=== PATIENT | female | born 1950 | race Caucasian/White ===

== ENCOUNTER 2018-06-21 10:26 | Emergency (ER) | payer OTHER, SELFPAY ==
[2018-06-21 10:34] VITALS: BP 155/85; PULSE 95; RESP 18; TEMP 36.6; O2SAT 97; BMI 29.9
--- NOTE | 2018-06-21 10:47 | ED_ITS ---
HPI - Dizziness General Chief Complaint: Dizziness Stated Complaint: diabeticvictor hugo Time Seen by Provider: 06/21/18 10:34 Source: patient Mode of arrival: wheelchair Limitations: no limitations History of Present Illness HPI Narrative: Patient is a 59-year-old female presenting with dizziness and lightheadedness. She was at water aerobics which she typically does 3 days a week she usually feels a little weak afterwards. She says she is prediabetic so typically PE something she feels better. However today she had to leave early because she did not feel good she ate something and still does not feel quite right. She denies chest pain heart palpitations or shortness of breath. She has no weakness the vision change or confusion. She has not passed out but feels like she might. She denies drinking any water. MD complaint: dizziness and lightheadedness Onset (ago): minute(s) Severity: mild Relieving factors: nothing Exacerbating factors: nothing Related Data Home Medications Medication Instructions Recorded Confirmed hydrochlorothiazide 25 mg PO DAILY #30 04/14/16 06/21/18 levothyroxine [Synthroid] 75 mcg PO DAILY #30 04/14/16 06/21/18 losartan 50 mg PO DAILY #0 tab 04/14/16 06/21/18 meloxicam [Mobic] 7.5 mg PO [facility] PRN #0 tab 04/14/16 06/21/18 ranitidine HCl 150 mg PO DAILY PRN #0 tab 04/14/16 06/21/18 clonazepam 0.25 mg PO [facility] PRN 06/21/18 06/21/18 desvenlafaxine succinate [Pristiq] 100 mg PO DAILY 06/21/18 06/21/18 trazodone 100 mg PO BEDTIME 06/21/18 06/21/18 Previous Rx's Medication Instructions Recorded propranolol 10 mg tablet 10 mg PO BIDP PRN #180 05/05/18 Allergies Allergy/AdvReac Type Severity Reaction Status Date / Time codeine [CODEINE] Allergy Unknown Verified 06/21/18 10:34 Review of Systems Review of Systems All systems reviewed & are unremarkable except as noted in HPI and below Constitutional Denies chills, Denies fever(s), Denies lethargy and Denies weakness Eyes Denies blurry vision and Denies diplopia ENT Ears, Nose, Mouth, and Throat: Denies vertigo and Reports dizziness Cardiovascular Denies chest pain, Denies syncope, Denies rapid heart rate, Denies irregular heart rhythm, Reports lightheadedness, Denies palpitations and Denies orthopnea Gastrointestinal Gastrointestinal: Denies abdominal pain, Denies change in bowel habits, Denies diarrhea, Denies nausea and Denies vomiting Musculoskeletal Denies back pain, Denies muscle weakness, Denies numbness and Denies tingling Integumentary/Breasts Denies pruritus, Denies erythema, Denies rash and Denies wounds Neurologic Denies vertigo, Reports dizziness, Denies syncope, Denies focal weakness, Denies numbness, Denies tingling and Denies weakness Endocrine Denies palpitations [facility] Social History Smoking Status: Never smoker Exam Initial Vital Signs Initial Vital Signs: Vital Signs Temperature 97.9 F 06/21/18 10:34 Pulse Rate 95 H 06/21/18 10:34 Respiratory Rate 18 06/21/18 10:34 Blood Pressure 155/85 H 06/21/18 10:34 Pulse Oximetry 97 06/21/18 10:34 GENERAL: Well-appearing, well-nourished and in no acute distress. HEENT: Head atraumatic,EOMI, pupils reactive, face symmetric CARDIOVASCULAR: Regular rate and rhythm without murmurs, rubs or gallops. RESPIRATORY: Breath sounds equal bilaterally, no wheezes rales or rhonchi. ABDOMEN: Soft, nontender. Normoactive bowel sounds all 4 quadrants. No guarding or rebound. EXTREMITIES: Normal range of motion, no clubbing or edema. Neurovascularly intact NEUROLOGICAL: Alert and oriented x4.Normal gait and speech. Cranial nerves II through XII grossly intact. Good [id number], good [id number], strength equal bilaterally, no dysarthria or aphasia, sensation in tact to soft touch bilaterally, no visual changes, no facial droop SKIN: Warm, dry, no laceration, no petechiae, no rashes or lesions. Scores NIH Stroke Scale Level of Conciousness: Alert, keenly responsive Ask month/age: Answers both questions correctly. Open/close eyes, close hand: Performs both tasks correctly Best gaze horizontal: Normal Visual chamberlain: No visual loss Facial palsy: Normal symetrical movement Left arm drift: No drift for full 10 sec Right arm drift: No drift for full 10 sec Left leg drift: No drift for full 10 sec Right leg drift: No drift for full 10 sec Limb ataxia: Absent Sensory on face/arms/legs: Normal, no sensory loss Best language: No aphasia, normal Dysarthria: Normal Extinction or inattention: No abnormality Total NIH Stroke scale score: 0 Course Orders Ordered: ED Orders 06/21/18 10:57 Complete Blood Count AUTO DIFF Stat Comprehensive Metabolic Panel Stat 06/21/18 11:30 Urine Microscopic Stat Discontinued Medications Sodium Chloride (Normal Saline 0.9%) 1,000 mls @ 1,000 mls/hr IV CONT ASHLEE Last Infusion: 06/21/18 12:07 Dose: 0 mls/hr Admin: 06/21/18 11:06 Dose: 1,000 mls/hr Vital Signs - 8 hr 06/21/18 11:30 Pulse Rate 88 Respiratory Rate 18 Blood Pressure [Left Arm] 134/77 Pulse Oximetry 97 MDM - Dizziness Lab Data Attestation: I reviewed the patient's lab results. Result diagrams: 06/21/18 10:57 06/21/18 10:57 Lab Results 06/21/18 06/21/18 06/21/18 Range/Units 10:57 10:57 11:30 WBC 6.0 (4.5-11.0) X10^3/uL RBC 4.58 (4.0-5.2) X10^6/uL Hgb 14.2 (12.0-16.0) g/dL Hct 41.9 (36-46) % MCV 91.5 (80-100) fL MCH 31.0 (26-34) PG MCHC 33.9 (30-36) % RDW 12.9 (11.6-14.8) % Plt Count 171 (150-400) X10^3/uL Neut % (Auto) 58.1 (50-75) % Lymph % (Auto) 30.0 (25-40) % [place] % (Auto) 8.5 (3-14) % Eos % (Auto) 2.7 (2-4) % Baso % (Auto) 0.7 (0-2) % Neut # (Auto) 3500 (0332-3406) /uL Sodium 138 (137-145) mmol/L Potassium 3.3 L (3.4-5.1) mmol/L Chloride 99 (98-107) mmol/L Carbon Dioxide 28 (22-32) mmol/L BUN 17 (7-17) mg/dL Creatinine 0.70 (0.52-1.04) mg/dL Estimated GFR > 60.0 (>60) mL/min BUN/Creatinine Ratio 24.3 H (6-22) Glucose 129 H (80-110) mg/dL Calcium 9.1 (8.4-10.2) mg/dL Total Bilirubin 0.5 (0.2-1.3) mg/dL AST 26 (14-36) IU/L ALT 38 (9-52) IU/L Alkaline Phosphatase 80 (38-126) U/L Total Protein 6.8 (6.3-8.2) g/dL Albumin 4.1 (3.5-5.0) g/dL Globulin 2.7 (1.7-4.1) g/dL Albumin/Globulin Ratio 1.5 (1.0-2.8) Urine RBC 1-5/hpf (0-5/HPF) Urine WBC 1-5/hpf (0-5/HPF) Ur Squamous Epith Cells 5-10 /hpf H Amorphous Sediment 1+ Urine Bacteria Many (>30) H (None) Ur Culture Indicated? Cult not indicated Micro UA Comment Not Reportable Point of Care Testing Glucose POC 148 Urine Dip Bedside Urine Glucose Negative Bedside Urine Bilirubin - Negative Bedside Urine Ketone - Negative Urine Specific [place] 1.015 Bedside Urine Occult Blood + Bedside Urine pH 6.0 Bedside Urine Protein - Negative Bedside Urine Urobilinogen - Negative Bedside Urine Nitrite - Negative Bedside Urine Leukocytes ++ 125 Esterase ECG Data Attestation: I personally reviewed and interpreted this ECG as follows: Prior ECG tracings: not available for review Interpretation: Normal sinus rhythm rate [address] changes or T-wave inversions artifact noted in V5 MDM Narrative Medical decision making narrative: Patient overall is feeling better after IV fluids. Likely dehydration. Ambulatory in the ED no assistance needed. No focal deficits no further imaging required at this time. Discharge Plan Departure Patient Disposition: Home Clinical Impression: Acute dehydration Discharge Date/Time: 06/21/18 12:18 Interventions: ED Discharge Assessment Last Done: 06/21/18 12:16 Instructions: DI for Dehydration -- Adult Activity Restrictions/Additional Instructions: *You have been diagnosed with dehydration *What to do: Increase fluid intake especially before after an during exercise *Continue to take medications as directed *Follow up with your primary care provider in 2-3 days *Return to ER if you should have increasing dizziness and weakness or any new, worsening or concerning symptoms Prescriptions: No Action propranolol 10 mg tablet 10 mg PO BIDP PRN (Reason: anxiety) Qty: 180 RF: 1 losartan 50 MG tablet 50 mg PO DAILY Qty: 0 RF: 0 levothyroxine [Synthroid] 75 MCG tablet 75 mcg PO DAILY Qty: 30 RF: 5 hydrochlorothiazide 25 MG tablet 25 mg PO DAILY Qty: 30 RF: 2 meloxicam [Mobic] 7.5 MG tablet 7.5 mg PO [facility] PRN (Reason: pain) Qty: 0 RF: 0 ranitidine HCl 150 MG tablet 150 mg PO DAILY PRN (Reason: Heartburn) Qty: 0 RF: 0 clonazepam 0.5 mg tablet 0.25 mg PO HSP PRN (Reason: anxiety) RF: 0 trazodone 100 mg tablet 100 mg PO BEDTIME RF: 0 desvenlafaxine succinate [Pristiq] 100 mg tablet extended release 24 hr 100 mg PO DAILY RF: 0 Referrals: Anel Navarrete PA-C [Primary Care Provider] -
[2018-06-21] MEDS: SODIUM CHLORIDE 0.9% 1,000 ML 1000 ML IV (11:06)
[2018-06-21 11:08] LABS: Add Manual Diff / Slide Review NO; Basophils Percent Auto 0.7 % (0-2); Eosinophils Percent Auto 2.7 % (2-4); Hematocrit 41.9 % (36-46); Hemoglobin 14.2 g/dL (12.0-16.0); Mean Corpuscular HGB Conc 33.9 % (30-36); Mean Corpuscular Volume 91.5 fL (80-100); Monocytes Percent Auto 8.5 % (3-14); Neutrophils Absolute Auto 3500 /uL (1500-7000); Neutrophils Percent Auto 58.1 % (50-75); Platelet Count 171 X10^3/uL (150-400); Red Blood Cell Count 4.58 X10^6/uL (4.0-5.2); Red Cell Distribution Width 12.9 % (11.6-14.8)
[2018-06-21 11:09] VITALS: BP 138/78; BP 140/78; PULSE 84; PULSE 92; PULSE 95
[2018-06-21 11:18] LABS: Alanine Aminotransferase 38 IU/L (9-52); Albumin 4.1 g/dL (3.5-5.0); Albumin Globulin Ratio 1.5 (1.0-2.8); Alkaline Phosphatase 80 U/L (38-126); Aspartate Aminotransferase 26 IU/L (14-36); BUN Creatinine Ratio 24.3 (6-22); Bilirubin Total 0.5 mg/dL (0.2-1.3); Blood Urea Nitrogen 17 mg/dL (7-17); Calcium 9.1 mg/dL (8.4-10.2); Carbon Dioxide 28 mmol/L (22-32); Chloride 99 mmol/L (98-107); Estimated Glomerular Filt Rate > 60.0 mL/min (>60); Globulin 2.7 g/dL (1.7-4.1); Glucose 129 mg/dL (80-110); HEMOLYSIS < 15 (0-50); Potassium 3.3 mmol/L (3.4-5.1); Sodium 138 mmol/L (137-145); Total Protein 6.8 g/dL (6.3-8.2)
[2018-06-21 11:30] VITALS: BP 134/77; PULSE 88; RESP 18; O2SAT 97
[2018-06-21 11:42] LABS: Amorphous Sediment Urine 1+; Bacteria Urine Many (>30); Culture Indicated Urine Cult Not Indicated; RBC Urine 1-5/HPF (0-5/HPF); Squamous Epithelial Cell Urine 5-10 /HPF; WBC Urine 1-5/HPF (0-5/HPF)
== END 2018-06-21 12:18 | disposition home or self-care (01) ==
PROVIDERS: Emergency Provider Emergency Medicine; PCP Physician Assistant
DX: E86.0 Dehydration (principal)
CPT/HCPCS: 80053; 81003; 81015; 82962; 85025; 93005; 96360; 99283; 99284

== ENCOUNTER 2018-07-07 11:20 | Emergency (ER) | payer OTHER, SELFPAY ==
[2018-07-07 11:20] VITALS: BP 167/101; PULSE 82; RESP 14; TEMP 36.5; O2SAT 99
--- NOTE | 2018-07-07 11:34 | DI.RAD.S_ITS ---
PROCEDURE: XR CHEST 1V INDICATIONS: chest pain TECHNIQUE: One view of the chest was acquired. COMPARISON: None. FINDINGS: Surgical changes and devices: None. Lungs and pleura: No pleural effusions or pneumothorax. Lungs are clear. Mediastinum: Mediastinal contours appear normal. Heart size is normal. Bones and chest wall: No suspicious bony lesions. Overlying soft tissues appear unremarkable. IMPRESSION: Normal for age, source of current chest pain symptoms is not seen. Dictated by: Jean Pierre Auguste M.D. on 07/07/2018 at 12:07 Approved by: Jean Pierre Auguste M.D. on 07/07/2018 at 12:08
[2018-07-07 11:43] LABS: Add Manual Diff / Slide Review NO; Basophils Absolute Auto 0 /uL (0-100); Basophils Percent Auto 0.7 % (0-2); Eosinophils Absolute Auto 200 /uL (0-450); Hematocrit 42.4 % (36-46); Hemoglobin 14.6 g/dL (12.0-16.0); Lymphocytes Absolute Auto 1900 /uL (1100-4500); Lymphocytes Percent Auto 30.3 % (25-40); Mean Corpuscular HGB Conc 34.4 % (30-36); Mean Corpuscular Hemoglobin 31.4 PG (26-34); Mean Corpuscular Volume 91.2 fL (80-100); Monocytes Absolute Auto 500 /uL (0-900); Monocytes Percent Auto 7.3 % (3-14); Neutrophils Absolute Auto 3700 /uL (1500-7000); Neutrophils Percent Auto 58.7 % (50-75); Platelet Count 185 X10^3/uL (150-400); Red Blood Cell Count 4.65 X10^6/uL (4.0-5.2); Red Cell Distribution Width 13.1 % (11.6-14.8); White Blood Cell Count 6.4 X10^3/uL (4.5-11.0)
[2018-07-07 11:47] LABS: INR 0.9 (0.9-1.3); Prothrombin Time 10.7 SECONDS (10.1-12.7)
[2018-07-07 11:50] LABS: PTT Partial Thromboplastin Tim 25 SECONDS (26.4-36.2)
[2018-07-07 11:52] LABS: Alanine Aminotransferase 40 IU/L (9-52); Albumin 4.4 g/dL (3.5-5.0); Albumin Globulin Ratio 1.4 (1.0-2.8); Alkaline Phosphatase 83 U/L (38-126); Aspartate Aminotransferase 29 IU/L (14-36); BUN Creatinine Ratio 17.1 (6-22); Bilirubin Total 0.5 mg/dL (0.2-1.3); Blood Urea Nitrogen 12 mg/dL (7-17); Calcium 9.1 mg/dL (8.4-10.2); Carbon Dioxide 31 mmol/L (22-32); Chloride 92 mmol/L (98-107); Creatine Kinase 64 U/L (30-135); Estimated Glomerular Filt Rate > 60.0 mL/min (>60); Globulin 3.1 g/dL (1.7-4.1); Glucose 116 mg/dL (80-110); HEMOLYSIS < 15 (0-50); Lipase 110 U/L (23-300); Potassium 3.6 mmol/L (3.4-5.1); Sodium 132 mmol/L (137-145); Total Protein 7.5 g/dL (6.3-8.2)
[2018-07-07] MEDS: ASPIRIN 81 MG TAB 324 MG PO (11:54)
[2018-07-07 12:00] VITALS: BP 144/84; BP 155/95; BP 156/93; PULSE 69; PULSE 76; PULSE 83; RESP 18; O2SAT 99
[2018-07-07 12:04] LABS: Troponin I < 0.012 ng/mL (0.01-0.034)
[2018-07-07 12:50] VITALS: BP 130/77; PULSE 71; RESP 12; O2SAT 98
[2018-07-07 14:05] VITALS: BP 140/90; PULSE 70; RESP 18; O2SAT 97
--- NOTE | 2018-07-07 18:53 | ED.DIZZY ---
HPI - Dizziness General Chief Complaint: Syncope Stated Complaint: Dizzy and faint Time Seen by Provider: 07/07/18 12:21 Source: patient Mode of arrival: ambulatory Limitations: no limitations History of Present Illness HPI Narrative: Patient presents the emergency department complaining of dizziness after her water aerobics workouts for the last 4 months. Patient states that she was seen here 2 weeks ago for the same thing, and was told she needed to drink more water, both by the emergency physician and by the PA at her doctor's office, whom she saw subsequently. She states she has been trying to drink more water, and has been drinking about 64 oz per day, but that this has not made the symptoms go away. She states that actually, today, she felt so bad that she had to stop 30 min before the workup was over. Patient states she walks every Thursday, a little over a mild total, and does not generally have any problem with this. She states that she just feels generally a little bit tired. She states she has been somewhat inconsistent about her water aerobics workouts, and other than the walking, does not do any exercise in between to speak of. She states that she tries to eat fruits and vegetables, but also visits [employer] and [employer] regularly, as well. Patient denies any chest pain or shortness of breath. She states she had a stress test 2 years ago that was negative. No history of cardiac problems for the patient. She denies any history of diabetes, and no hypertension. Patient denies any palpitations with the lightheadedness. Patient states she felt as though she might lose consciousness today but never did. She states her dizziness is more of a lightheaded feeling, as opposed to a spinning, vertigo feeling. Patient denies any problems with lightheadedness or other symptoms when she is not exercising. Patient states that generally, the symptoms last for 30-60 minutes after exercise, and then subside. Patient states that she is now feeling normal, but that the last episode of symptoms was earlier today. Related Data Home Medications Medication Instructions Recorded Confirmed hydrochlorothiazide 25 mg PO DAILY #30 04/14/16 07/07/18 levothyroxine [Synthroid] 75 mcg PO DAILY #30 04/14/16 07/07/18 losartan 50 mg PO DAILY #0 tab 04/14/16 07/07/18 meloxicam [Mobic] 7.5 mg PO [facility] PRN #0 tab 04/14/16 06/21/18 ranitidine HCl 150 mg PO DAILY PRN #0 tab 04/14/16 06/21/18 clonazepam 0.25 mg PO [facility] PRN 06/21/18 07/07/18 desvenlafaxine succinate [Pristiq] 100 mg PO DAILY 06/21/18 07/07/18 trazodone 100 mg PO BEDTIME 06/21/18 07/07/18 Previous Rx's Medication Instructions Recorded propranolol 10 mg tablet 10 mg PO BIDP PRN #180 05/05/18 Allergies Allergy/AdvReac Type Severity Reaction Status Date / Time codeine [CODEINE] Allergy Unknown Verified 07/07/18 11:34 Review of Systems Constitutional Denies chills, Denies fever(s), Denies lethargy and Denies weakness Eyes Denies change in vision, Denies eye discharge, Denies irritation and Denies loss of vision ENT Ears, Nose, Mouth, and Throat: Denies change in voice, Denies neck pain and Denies sore throat Cardiovascular Denies chest pain, Denies irregular heart rhythm, Reports lightheadedness, Denies palpitations, Denies dyspnea, Denies dyspnea on exertion and Denies orthopnea Respiratory Denies cough, Denies dyspnea, Denies dyspnea on exertion and Denies wheezing Gastrointestinal Gastrointestinal: Denies abdominal pain, Denies change in bowel habits, Denies diarrhea, Denies nausea and Denies vomiting Genitourinary Denies hematuria, Denies flank pain, Denies urinary incontinence and Denies urinary urgency Musculoskeletal Denies neck pain Integumentary/Breasts Denies pruritus, Denies erythema, Denies rash and Denies wounds Neurologic Denies confusion, Denies loss of vision and Denies weakness Psychiatric Denies anxiety, Denies confusion, Denies depression, Denies homicidal ideation and Denies suicidal ideation Endocrine Denies palpitations Hematologic/Lymphatic Denies easy bruising Allergic/Immunologic Denies wheezing [facility] Medical History Postural dizziness with near syncope (Acute) Generalized anxiety disorder (Acute) Major depressive disorder, recurrent (Acute) Major depressive disorder, recurrent, in remission (Acute) Surgical History No pertinent past surgical history (Acute) Social History Smoking Status: Never smoker Exam Initial Vital Signs Initial Vital Signs: Vital Signs Temperature 97.7 F 07/07/18 11:20 Pulse Rate 82 07/07/18 11:20 Respiratory Rate 14 07/07/18 11:20 Blood Pressure 167/101 H 07/07/18 11:20 Pulse Oximetry 99 07/07/18 11:20 Const General: cooperative and well developed Nutritional Appearance: well nourished Orientation: alert, awake, oriented x3 and not confused HENMT Head: normocephalic and atraumatic Ears: external ears normal Nose: external nose normal and No nasal discharge Face and sinus: face symmetric and No dry mucous membranes Mouth: oral mucosae normal and moist mucous membranes Teeth and gingiva: dentition normal Eyes General: appearance normal, both eyes and all related structures Eyelids: eyelids normal Conjunctivae: conjunctivae normal Sclera: sclerae normal Pupils: PERRL EOM: EOM intact bilaterally Neck Neck: normal visual inspection, trachea midline, No lymphadenopathy, No midline deformity and No JVD Lymphatic: No lymphedema Chest Chest: normal inspection of the chest Resp Effort & Inspection: normal respiratory effort, able to speak in complete sentences, no respiratory distress and no use of accessory muscles Auscultation: clear to auscultation bilaterally, no rales, no rhonchi and no wheezes Cardio Rate: regular rate Rhythm: regular rhythm Heart Sounds: no click, no gallops, no murmurs and no rubs Pulses: normal peripheral pulses GI Inspection: non-distended Palpation: soft, no hepatosplenomegaly, No guarding, No pulsatile mass and No tender Back/Spine/Pelvis Back: No CVA tenderness Cervical Spine: cervical ROM normal and No pain with cervical ROM Thoracic/Lumbar Spine: thoracic and lumbar spine normal to inspection Skin General: no rashes or lesions noted, No jaundice and No petechiae Neuro General: alert, awake, oriented x3, gait normal and no focal motor deficits Speech: speech normal Extrem General: full ROM, no clubbing, cyanosis or edema, no pedal edema and no calf tenderness Psych Appearance: well kempt Mental Status: mental status grossly normal Attitude: cooperative Thought Content: normal and suicidality Judgment: judgment good Course Course Narrative: Patient was worked up with labs and EKG, which were unremarkable for acute abnormalities. I discussed with the patient that at this point, she needs to stop doing water aerobics until she has been able to get to the bottom of why she is getting dizzy. It is very important that she has a follow-up with her primary doctor in the near future to discuss getting a stress test, and potentially, Holter monitoring. The patient has expressed understanding. She is feeling fine now, as she does when she is not exercising, and I feel she is stable for discharge home. We have discussed the need for follow-up, as well as the usual indications for return, especially should she develop the lightheadedness or chest pain and/or shortness of breath at rest. Orders Ordered: ED Orders 07/07/18 11:34 XR chest 1V Stat EKG-12 Lead Stat 07/07/18 11:35 Complete Blood Count AUTO DIFF Stat Comprehensive Metabolic Panel Stat Lipase Stat Partial Thromboplastin Time Stat Prothrombin Time INR Stat Troponin & CK Cardiac Panel Stat Discontinued Medications Aspirin (Aspirin Chew) 324 mg PO NOW ONE Stop: 07/07/18 11:35 Last Admin: 07/07/18 11:54 Dose: 324 mg Vital Signs - 8 hr 07/07/18 11:20 07/07/18 12:00 07/07/18 12:50 Temperature 97.7 F Pulse Rate 82 76 71 Pulse Rate [Orthostatic Lying] 69 Pulse Rate [Orthostatic Sitting] 76 Pulse Rate [Orthostatic Standing] 83 Respiratory Rate 14 18 12 Blood Pressure 167/101 H Blood Pressure [Orthostatic Lying] 144/84 H Blood Pressure [Orthostatic Sitting] 156/93 H Blood Pressure [Orthostatic Standing] 155/95 H Blood Pressure [Right Arm] 144/84 H 130/77 Pulse Oximetry 99 99 98 07/07/18 14:05 Temperature Pulse Rate 70 Pulse Rate [Orthostatic Lying] Pulse Rate [Orthostatic Sitting] Pulse Rate [Orthostatic Standing] Respiratory Rate 18 Blood Pressure 140/90 Blood Pressure [Orthostatic Lying] Blood Pressure [Orthostatic Sitting] Blood Pressure [Orthostatic Standing] Blood Pressure [Right Arm] Pulse Oximetry 97 MDM - Dizziness Medical Records Attestation: I reviewed the patient's medical records. Lab Data Attestation: I reviewed the patient's lab results. Result diagrams: 07/07/18 11:35 07/07/18 11:35 Lab Results 07/07/18 07/07/18 07/07/18 Range/Units 11:35 11:35 11:35 WBC 6.4 (4.5-11.0) X10^3/uL RBC 4.65 (4.0-5.2) X10^6/uL Hgb 14.6 (12.0-16.0) g/dL Hct 42.4 (36-46) % MCV 91.2 (80-100) fL MCH 31.4 (26-34) PG MCHC 34.4 (30-36) % RDW 13.1 (11.6-14.8) % Plt Count 185 (150-400) X10^3/uL Neut % (Auto) 58.7 (50-75) % Lymph % (Auto) 30.3 (25-40) % [place] % (Auto) 7.3 (3-14) % Eos % (Auto) 3.0 (2-4) % Baso % (Auto) 0.7 (0-2) % Neut # (Auto) 3700 (1483-9702) /uL Lymph # (Auto) 1900 (0913-2211) /uL [place] # (Auto) 500 (0-900) /uL Eos # (Auto) 200 (0-450) /uL Baso # (Auto) 0 (0-100) /uL PT 10.7 (10.1-12.7) SECONDS INR 0.9 (0.9-1.3) APTT 25 L (26.4-36.2) SECONDS Sodium 132 L (137-145) mmol/L Potassium 3.6 (3.4-5.1) mmol/L Chloride 92 L (98-107) mmol/L Carbon Dioxide 31 (22-32) mmol/L BUN 12 (7-17) mg/dL Creatinine 0.70 (0.52-1.04) mg/dL Estimated GFR > 60.0 (>60) mL/min BUN/Creatinine Ratio 17.1 (6-22) Glucose 116 H (80-110) mg/dL Calcium 9.1 (8.4-10.2) mg/dL Total Bilirubin 0.5 (0.2-1.3) mg/dL AST 29 (14-36) IU/L ALT 40 (9-52) IU/L Alkaline Phosphatase 83 (38-126) U/L Total Creatine Kinase 64 (30-135) U/L CK-MB (CK-2) TNP CK-MB (CK-2) Rel Index TNP Troponin I < 0.012 (0.01-0.034) ng/mL Total Protein 7.5 (6.3-8.2) g/dL Albumin 4.4 (3.5-5.0) g/dL Globulin 3.1 (1.7-4.1) g/dL Albumin/Globulin Ratio 1.4 (1.0-2.8) Lipase 110 (23-300) U/L Urine Dip Bedside Urine Glucose Negative Bedside Urine Bilirubin - Negative Bedside Urine Ketone - Negative Urine Specific [place] 1.015 Bedside Urine Occult Blood +/- Bedside Urine pH 6.0 Bedside Urine Protein - Negative Bedside Urine Urobilinogen - Negative Bedside Urine Nitrite - Negative Bedside Urine Leukocytes - Negative Esterase Imaging Data Chest x-ray: Attestation: I personally reviewed and interpreted this imaging study as follows: My impression: Negative Radiologist's impression: [address] [address] XRay Report Signed Patient: Shirley Garza MMR#: [id number] : 1950Acct:[id number] Age/Sex: 67 / FDate of Service: 07/07/18 Loc: ED Accession Number: [id number] Procedure: XR chest 1V Ordering Provider: Nayely Bradshaw MD PROCEDURE: XR CHEST 1V INDICATIONS: chest pain TECHNIQUE: One view of the chest was acquired. COMPARISON: None. FINDINGS: Surgical changes and devices: None. Lungs and pleura: No pleural effusions or pneumothorax. Lungs are clear. Mediastinum: Mediastinal contours appear normal. Heart size is normal. Bones and chest wall: No suspicious bony lesions. Overlying soft tissues appear unremarkable. IMPRESSION: Normal for age, source of current chest pain symptoms is not seen. Dictated by: Jean Pierre Auguste M.D. on 07/07/2018 at 12:07 Approved by: Jean Pierre Auguste M.D. on 07/07/2018 at 12:08 ECG Data Attestation: I personally reviewed and interpreted this ECG as follows: (See below) Interpretation: Twelve lead EKG performed July 07 2018 at 11:26 a.m., as follows: Regular ventricular rhythm with a rate of 71 beats per minute [place] interval 157 millisecond QRS duration 91 millisecond QTC interval 389 millisecond No ectopy Nonspecific ST T wave changes In summary, normal sinus rhythm; possible inferior AL probably old; borderline EKG as interpreted by ED MD. Discharge Plan Departure Patient Disposition: Home Clinical Impression: Postural dizziness with near syncope Discharge Date/Time: 07/07/18 14:05 Interventions: ED Discharge Assessment Last Done: 07/07/18 14:05 Instructions: DI for Dizziness-Nonvertigo Activity Restrictions/Additional Instructions: Your labs and EKG are unremarkable. If you're continuing to have these episodes of lightheadedness with exercise, it is very important that you get to the bottom of this before continuing your current exercise regimen. If you are doing okay with walking, then for now, you may substitute walking for the aerobics, but if this also proves to be too much, you will need to discontinue this until you workout with your doctor what is going on. You may need to have another stress test done, as well as possibly wear a Holter monitor to see if you are having abnormal rhythms of your heart during exercise. If you feel as though you are going to faint, or if you have chest pain or shortness of breath, you should return to the emergency department immediately. At this point in time, there is no evidence that you have had a heart attack or anything else acutely serious; however, it is important that you establish that you are not at risk for this. Prescriptions: No Action propranolol 10 mg tablet 10 mg PO BIDP PRN (Reason: anxiety) Qty: 180 RF: 1 losartan 50 MG tablet 50 mg PO DAILY Qty: 0 RF: 0 levothyroxine [Synthroid] 75 MCG tablet 75 mcg PO DAILY Qty: 30 RF: 5 hydrochlorothiazide 25 MG tablet 25 mg PO DAILY Qty: 30 RF: 2 meloxicam [Mobic] 7.5 MG tablet 7.5 mg PO [facility] PRN (Reason: pain) Qty: 0 RF: 0 ranitidine HCl 150 MG tablet 150 mg PO DAILY PRN (Reason: Heartburn) Qty: 0 RF: 0 clonazepam 0.5 mg tablet 0.25 mg PO HSP PRN (Reason: anxiety) RF: 0 trazodone 100 mg tablet 100 mg PO BEDTIME RF: 0 desvenlafaxine succinate [Pristiq] 100 mg tablet extended release 24 hr 100 mg PO DAILY RF: 0 Referrals: Aenl Navarrete PA-C [Primary Care Provider] -
--- NOTE | 2018-07-07 18:59 | ED_ITS ---
HPI - Dizziness General Chief Complaint: Syncope Stated Complaint: Dizzy and faint Time Seen by Provider: 07/07/18 12:21 Source: patient Mode of arrival: ambulatory Limitations: no limitations History of Present Illness HPI Narrative: Patient presents the emergency department complaining of dizziness after her water aerobics workouts for the last 4 months. Patient states that she was seen here 2 weeks ago for the same thing, and was told she needed to drink more water, both by the emergency physician and by the PA at her doctor's office, whom she saw subsequently. She states she has been trying to drink more water, and has been drinking about 64 oz per day, but that this has not made the symptoms go away. She states that actually, today, she felt so bad that she had to stop 30 min before the workup was over. Patient states she walks every Thursday, a little over a mild total, and does not generally have any problem with this. She states that she just feels generally a little bit tired. She states she has been somewhat inconsistent about her water aerobics workouts, and other than the walking, does not do any exercise in between to speak of. She states that she tries to eat fruits and vegetables, but also visits [employer] and [employer] regularly, as well. Patient denies any chest pain or shortness of breath. She states she had a stress test 2 years ago that was negative. No history of cardiac problems for the patient. She denies any history of diabetes, and no hypertension. Patient denies any palpitations with the lightheadedness. Patient states she felt as though she might lose consciousness today but never did. She states her dizziness is more of a lightheaded feeling, as opposed to a spinning, vertigo feeling. Patient denies any problems with lightheadedness or other symptoms when she is not exercising. Patient states that generally, the symptoms last for 30-60 minutes after exercise, and then subside. Patient states that she is now feeling normal, but that the last episode of symptoms was earlier today. Related Data Home Medications Medication Instructions Recorded Confirmed hydrochlorothiazide 25 mg PO DAILY #30 04/14/16 07/07/18 levothyroxine [Synthroid] 75 mcg PO DAILY #30 04/14/16 07/07/18 losartan 50 mg PO DAILY #0 tab 04/14/16 07/07/18 meloxicam [Mobic] 7.[address] [facility] PRN #0 tab 04/14/16 06/21/18 ranitidine HCl 150 mg PO DAILY PRN #0 tab 04/14/16 06/21/18 clonazepam 0.25 mg PO [facility] PRN 06/21/18 07/07/18 desvenlafaxine succinate [Pristiq] 100 mg PO DAILY 06/21/18 07/07/18 trazodone 100 mg PO BEDTIME 06/21/18 07/07/18 Previous Rx's Medication Instructions Recorded propranolol 10 mg tablet 10 mg PO BIDP PRN #180 05/05/18 Allergies Allergy/AdvReac Type Severity Reaction Status Date / Time codeine [CODEINE] Allergy Unknown Verified 07/07/18 11:34 Review of Systems Constitutional Denies chills, Denies fever(s), Denies lethargy and Denies weakness Eyes Denies change in vision, Denies eye discharge, Denies irritation and Denies loss of vision ENT Ears, Nose, Mouth, and Throat: Denies change in voice, Denies neck pain and Denies sore throat Cardiovascular Denies chest pain, Denies irregular heart rhythm, Reports lightheadedness, Denies palpitations, Denies dyspnea, Denies dyspnea on exertion and Denies orthopnea Respiratory Denies cough, Denies dyspnea, Denies dyspnea on exertion and Denies wheezing Gastrointestinal Gastrointestinal: Denies abdominal pain, Denies change in bowel habits, Denies diarrhea, Denies nausea and Denies vomiting Genitourinary Denies hematuria, Denies flank pain, Denies urinary incontinence and Denies urinary urgency Musculoskeletal Denies neck pain Integumentary/Breasts Denies pruritus, Denies erythema, Denies rash and Denies wounds Neurologic Denies confusion, Denies loss of vision and Denies weakness Psychiatric Denies anxiety, Denies confusion, Denies depression, Denies homicidal ideation and Denies suicidal ideation Endocrine Denies palpitations Hematologic/Lymphatic Denies easy bruising Allergic/Immunologic Denies wheezing [facility] Medical History Postural dizziness with near syncope (Acute) Generalized anxiety disorder (Acute) Major depressive disorder, recurrent (Acute) Major depressive disorder, recurrent, in remission (Acute) Surgical History No pertinent past surgical history (Acute) Social History Smoking Status: Never smoker Exam Initial Vital Signs Initial Vital Signs: Vital Signs Temperature 97.7 F 07/07/18 11:20 Pulse Rate 82 07/07/18 11:20 Respiratory Rate 14 07/07/18 11:20 Blood Pressure 167/101 H 07/07/18 11:20 Pulse Oximetry 99 07/07/18 11:20 Const General: cooperative and well developed Nutritional Appearance: well nourished Orientation: alert, awake, oriented x3 and not confused HENMT Head: normocephalic and atraumatic Ears: external ears normal Nose: external nose normal and No nasal discharge Face and sinus: face symmetric and No dry mucous membranes Mouth: oral mucosae normal and moist mucous membranes Teeth and gingiva: dentition normal Eyes General: appearance normal, both eyes and all related structures Eyelids: eyelids normal Conjunctivae: conjunctivae normal Sclera: sclerae normal Pupils: PERRL EOM: EOM intact bilaterally Neck Neck: normal visual inspection, trachea midline, No lymphadenopathy, No midline deformity and No JVD Lymphatic: No lymphedema Chest Chest: normal inspection of the chest Resp Effort & Inspection: normal respiratory effort, able to speak in complete sentences, no respiratory distress and no use of accessory muscles Auscultation: clear to auscultation bilaterally, no rales, no rhonchi and no wheezes Cardio Rate: regular rate Rhythm: regular rhythm Heart Sounds: no click, no gallops, no murmurs and no rubs Pulses: normal peripheral pulses GI Inspection: non-distended Palpation: soft, no hepatosplenomegaly, No guarding, No pulsatile mass and No tender Back/Spine/Pelvis Back: No CVA tenderness Cervical Spine: cervical ROM normal and No pain with cervical ROM Thoracic/Lumbar Spine: thoracic and lumbar spine normal to inspection Skin General: no rashes or lesions noted, No jaundice and No petechiae Neuro General: alert, awake, oriented x3, gait normal and no focal motor deficits Speech: speech normal Extrem General: full ROM, no clubbing, cyanosis or edema, no pedal edema and no calf tenderness Psych Appearance: well kempt Mental Status: mental status grossly normal Attitude: cooperative Thought Content: normal and suicidality Judgment: judgment good Course Course Narrative: Patient was worked up with labs and EKG, which were unremarkable for acute abnormalities. I discussed with the patient that at this point, she needs to stop doing water aerobics until she has been able to get to the bottom of why she is getting dizzy. It is very important that she has a follow-up with her primary doctor in the near future to discuss getting a stress test, and potentially, Holter monitoring. The patient has expressed understanding. She is feeling fine now, as she does when she is not exercising , and I feel she is stable for discharge home. We have discussed the need for follow-up, as well as the usual indications for return, especially should she develop the lightheadedness or chest pain and/or shortness of breath at rest. Orders Ordered: ED Orders 07/07/18 11:34 XR chest 1V Stat EKG-12 Lead Stat 07/07/18 11:35 Complete Blood Count AUTO DIFF Stat Comprehensive Metabolic Panel Stat Lipase Stat Partial Thromboplastin Time Stat Prothrombin Time INR Stat Troponin & CK Cardiac Panel Stat Discontinued Medications Aspirin (Aspirin Chew) 324 mg PO NOW ONE Stop: 07/07/18 11:35 Last Admin: 07/07/18 11:54 Dose: 324 mg Vital Signs - 8 hr 07/07/18 11:20 07/07/18 12:00 07/07/18 12:50 Temperature 97.7 F Pulse Rate 82 76 71 Pulse Rate [Orthostatic Lying] 69 Pulse Rate [Orthostatic Sitting] 76 Pulse Rate [Orthostatic Standing] 83 Respiratory Rate 14 18 12 Blood Pressure 167/101 H Blood Pressure [Orthostatic Lying] 144/84 H Blood Pressure [Orthostatic Sitting] 156/93 H Blood Pressure [Orthostatic Standing] 155/95 H Blood Pressure [Right Arm] 144/84 H 130/77 Pulse Oximetry 99 99 98 07/07/18 14:05 Temperature Pulse Rate 70 Pulse Rate [Orthostatic Lying] Pulse Rate [Orthostatic Sitting] Pulse Rate [Orthostatic Standing] Respiratory Rate 18 Blood Pressure 140/90 Blood Pressure [Orthostatic Lying] Blood Pressure [Orthostatic Sitting] Blood Pressure [Orthostatic Standing] Blood Pressure [Right Arm] Pulse Oximetry 97 MDM - Dizziness Medical Records Attestation: I reviewed the patient's medical records. Lab Data Attestation: I reviewed the patient's lab results. Result diagrams: 07/07/18 11:35 07/07/18 11:35 Lab Results 07/07/18 07/07/18 07/07/18 Range/Units 11:35 11:35 11:35 WBC 6.4 (4.5-11.0) X10^3/uL RBC 4.65 (4.0-5.2) X10^6/uL Hgb 14.6 (12.0-16.0) g/dL Hct 42.4 (36-46) % MCV 91.2 (80-100) fL MCH 31.4 (26-34) PG MCHC 34.4 (30-36) % RDW 13.1 (11.6-14.8) % Plt Count 185 (150-400) X10^3/uL Neut % (Auto) 58.7 (50-75) % Lymph % (Auto) 30.3 (25-40) % [place] % (Auto) 7.3 (3-14) % Eos % (Auto) 3.0 (2-4) % Baso % (Auto) 0.7 (0-2) % Neut # (Auto) 3700 (9680-7616) /uL Lymph # (Auto) 1900 (3350-7884) /uL [place] # (Auto) 500 (0-900) /uL Eos # (Auto) 200 (0-450) /uL Baso # (Auto) 0 (0-100) /uL PT 10.7 (10.1-12.7) SECONDS INR 0.9 (0.9-1.3) APTT 25 L (26.4-36.2) SECONDS Sodium 132 L (137-145) mmol/L Potassium 3.6 (3.4-5.1) mmol/L Chloride 92 L (98-107) mmol/L Carbon Dioxide 31 (22-32) mmol/L BUN 12 (7-17) mg/dL Creatinine 0.70 (0.52-1.04) mg/dL Estimated GFR > 60.0 (>60) mL/min BUN/Creatinine Ratio 17.1 (6-22) Glucose 116 H (80-110) mg/dL Calcium 9.1 (8.4-10.2) mg/dL Total Bilirubin 0.5 (0.2-1.3) mg/dL AST 29 (14-36) IU/L ALT 40 (9-52) IU/L Alkaline Phosphatase 83 (38-126) U/L Total Creatine Kinase 64 (30-135) U/L CK-MB (CK-2) TNP CK-MB (CK-2) Rel Index TNP Troponin I < 0.012 (0.01-0.034) ng/mL Total Protein 7.5 (6.3-8.2) g/dL Albumin 4.4 (3.5-5.0) g/dL Globulin 3.1 (1.7-4.1) g/dL Albumin/Globulin Ratio 1.4 (1.0-2.8) Lipase 110 (23-300) U/L Urine Dip Bedside Urine Glucose Negative Bedside Urine Bilirubin - Negative Bedside Urine Ketone - Negative Urine Specific [place] 1.015 Bedside Urine Occult Blood +/- Bedside Urine pH 6.0 Bedside Urine Protein - Negative Bedside Urine Urobilinogen - Negative Bedside Urine Nitrite - Negative Bedside Urine Leukocytes - Negative Esterase Imaging Data Chest x-ray: Attestation: I personally reviewed and interpreted this imaging study as follows: My impression: Negative Radiologist's impression: [address] [address] XRay Report Signed Patient: Shirley Garza MMR#: [id number] : 1950Acct:[id number] Age/Sex: 67 / FDate of Service: 07/07/18 Loc: ED Accession Number: [id number] Procedure: XR chest 1V Ordering Provider: Nayely Bradshaw MD PROCEDURE: XR CHEST 1V INDICATIONS: chest pain TECHNIQUE: One view of the chest was acquired. COMPARISON: None. FINDINGS: Surgical changes and devices: None. Lungs and pleura: No pleural effusions or pneumothorax. Lungs are clear. Mediastinum: Mediastinal contours appear normal. Heart size is normal. Bones and chest wall: No suspicious bony lesions. Overlying soft tissues appear unremarkable. IMPRESSION: Normal for age, source of current chest pain symptoms is not seen. Dictated by: Jean Pierre Auguste M.D. on 07/07/2018 at 12:07 Approved by: Jean Pierre Auguste M.D. on 07/07/2018 at 12:08 ECG Data Attestation: I personally reviewed and interpreted this ECG as follows: (See below) Interpretation: Twelve lead EKG performed July 07 2018 at 11:26 a.m., as follows: Regular ventricular rhythm with a rate of 71 beats per minute OH interval 157 millisecond QRS duration 91 millisecond QTC interval 389 millisecond No ectopy Nonspecific ST T wave changes In summary, normal sinus rhythm; possible inferior MD probably old; borderline EKG as interpreted by ED MD. Discharge Plan Departure Patient Disposition: Home Clinical Impression: Postural dizziness with near syncope Discharge Date/Time: 07/07/18 14:05 Interventions: ED Discharge Assessment Last Done: 07/07/18 14:05 Instructions: DI for Dizziness-Nonvertigo Activity Restrictions/Additional Instructions: Your labs and EKG are unremarkable. If you're continuing to have these episodes of lightheadedness with exercise, it is very important that you get to the bottom of this before continuing your current exercise regimen. If you are doing okay with walking, then for now, you may substitute walking for the aerobics, but if this also proves to be too much, you will need to discontinue this until you workout with your doctor what is going on. You may need to have another stress test done, as well as possibly wear a Holter monitor to see if you are having abnormal rhythms of your heart during exercise. If you feel as though you are going to faint, or if you have chest pain or shortness of breath , you should return to the emergency department immediately. At this point in time, there is no evidence that you have had a heart attack or anything else acutely serious; however, it is important that you establish that you are not at risk for this. Prescriptions: No Action propranolol 10 mg tablet 10 mg PO BIDP PRN (Reason: anxiety) Qty: 180 RF: 1 losartan 50 MG tablet 50 mg PO DAILY Qty: 0 RF: 0 levothyroxine [Synthroid] 75 MCG tablet 75 mcg PO DAILY Qty: 30 RF: 5 hydrochlorothiazide 25 MG tablet 25 mg PO DAILY Qty: 30 RF: 2 meloxicam [Mobic] 7.5 MG tablet 7.5 mg PO [facility] PRN (Reason: pain) Qty: 0 RF: 0 ranitidine HCl 150 MG tablet 150 mg PO DAILY PRN (Reason: Heartburn) Qty: 0 RF: 0 clonazepam 0.5 mg tablet 0.25 mg PO HSP PRN (Reason: anxiety) RF: 0 trazodone 100 mg tablet 100 mg PO BEDTIME RF: 0 desvenlafaxine succinate [Pristiq] 100 mg tablet extended release 24 hr 100 mg PO DAILY RF: 0 Referrals: Anel Navarrete PA-C [Primary Care Provider] -
== END 2018-07-07 14:05 | disposition home or self-care (01) ==
PROVIDERS: Emergency Provider Emergency Medicine; PCP Physician Assistant
DX: R42 Dizziness and giddiness (principal); R55 Syncope and collapse
CPT/HCPCS: 36591; 71045; 80053; 81003; 82550; 83690; 84484; 85025; 85610; 85730; 93005; 93010; 99283; 99285

== ENCOUNTER → 2020-07-05 15:04 | Outpatient (CLI) | payer OTHER, SELFPAY ==
[2020-07-05 16:22] LABS: COVID19 -Nasal RAPID Negative (Negative)
== END ==
PROVIDERS: PCP Nurse Practitioner; Referring Provider Internal Medicine; Visit Provider Internal Medicine
DX: Z20.822 Contact with and (suspected) exposure to COVID-19 (principal)
CPT/HCPCS: 87635; C9803

== ENCOUNTER → 2020-07-06 10:50 | Outpatient (CLI) | payer OTHER, SELFPAY ==
--- NOTE | 2020-07-11 09:41 | PM.PFT.1 ---
Pulmonary Function Test Referral & Results Date Patient Seen: 07/06/20 Requesting provider: Sandra Sheikh Results: The spirometry demonstrates an FVC of 1.97 L which is 63% of predicted. The FEV1 was measured at 1.43 L which is 60% of predicted. The FEV1/FVC ratio was 73 which is 95% of predicted. Following the administration of bronchodilator there was a 12% improvement in FEV1 and a 40% improvement in FEF 25-75%. Lung volumes show an SVC of 2.14 L which is 72% of predicted. The diffusing capacity was measured at 21.37 which is 83% of predicted. The maximum voluntary ventilation was reduced Interpretation: This study demonstrates probable mild obstructive lung disease based on reduction FEV1 although FEV1/FVC ratio is preserved. There is evidence of minimal benefit following bronchodilator and shape of flow volume loop also supports the diagnosis of obstructive lung disease There is also reduction in lung volumes suggesting restrictive lung disease is present based on reduction SVC There is a minimal reduction in diffusing capacity as well suggesting an element of disease of the capillary alveolar level Clinical correlation suggested
== END ==
PROVIDERS: PCP Nurse Practitioner; Referring Provider Nurse Practitioner; Visit Provider Nurse Practitioner
DX: R06.2 Wheezing (principal); R00.2 Palpitations; R06.02 Shortness of breath; J98.8 Other specified respiratory disorders
CPT/HCPCS: 94060; 94726; 94729

== ENCOUNTER → 2023-10-06 10:07 | Outpatient (CLI) | payer OTHER, SELFPAY ==
[2023-10-06 10:38] LABS: Add Manual Diff / Slide Review NO; Basophils Absolute Auto 0 /uL (0-100); Basophils Percent Auto 0.6 % (0-2); Eosinophils Absolute Auto 100 /uL (0-450); Eosinophils Percent Auto 1.3 % (2-4); Hematocrit 42.3 % (36-46); Hemoglobin 14.4 g/dL (12.0-16.0); Lymphocytes Absolute Auto 1700 /uL (1100-4500); Lymphocytes Percent Auto 25.7 % (25-40); Mean Corpuscular Hemoglobin 30.9 PG (26-34); Mean Corpuscular Volume 90.9 fL (80-100); Monocytes Absolute Auto 400 /uL (0-900); Monocytes Percent Auto 6.3 % (3-14); Neutrophils Absolute Auto 4500 /uL (1500-7000); Neutrophils Percent Auto 66.1 % (50-75); Platelet Count 195 X10^3/uL (150-400); Red Blood Cell Count 4.66 X10^6/uL (4.0-5.2); Red Cell Distribution Width 13.2 % (11.6-14.8); White Blood Cell Count 6.8 X10^3/uL (4.5-11.0)
[2023-10-06 10:42] LABS: Hemoglobin A1C% w Est Avg Glu 6.1 % (4.0-6.0)
[2023-10-06 10:56] LABS: BUN Creatinine Ratio 26.8 (6-22); Blood Urea Nitrogen 15 mg/dL (7-17); Calcium 9.5 mg/dL (8.4-10.2); Carbon Dioxide 29 mmol/L (22-32); Chloride 104 mmol/L (98-107); Estimated Glomerular Filt Rate > 60 mL/min (>60); Glucose 132 mg/dL (80-110); HEMOLYSIS < 15 (0-50); Potassium 4.2 mmol/L (3.4-5.1); Sodium 139 mmol/L (137-145)
== END ==
PROVIDERS: PCP Nurse Practitioner; Referring Provider Orthopaedic Surgery Foot and Ankle Surgery; Visit Provider Orthopaedic Surgery Foot and Ankle Surgery
DX: Z01.818 Encounter for other preprocedural examination (principal); R73.9 Hyperglycemia, unspecified; Z01.812 Encounter for preprocedural laboratory examination
CPT/HCPCS: 36415; 80048; 83036; 85025; 93005

== ENCOUNTER 2024-01-06 06:11 | Day surgery (SDC) | payer OTHER, SELFPAY ==
[2023-12-29 09:44] VITALS: BMI 32.3
[2024-01-06] VITALS (14 sets, daily range): BP systolic 124–155; BP diastolic 67–93; PULSE 82–100; RESP 10–23; TEMP 36.1–37.2; O2SAT 91–97; BMI 32.3
--- NOTE | 2024-01-06 06:00 | DI.RAD.S_ITS ---
PROCEDURE: XR KNEE LT 1TO2V INDICATIONS: total left knee TECHNIQUE: To view(s) of the knee acquired. COMPARISON: None. FINDINGS: Bones: Patient is status post knee joint arthroplasty. Hardware components are in expected positions. Visualized bony structures are intact. Soft tissues: Overlying postoperative changes are noted. IMPRESSION: Expected post-operative appearance of a knee arthroplasty. Dictated by: Jose Almonte M.D. on 01/06/2024 at 12:07 Approved by: Jose Almonte M.D. on 01/06/2024 at 12:09
[2024-01-06] MEDS: ACETAMINOPHEN 325 MG TABLET 975 MG PO (07:03)
[2024-01-06] MEDS: CELECOXIB 200 MG CAPSULE 400 MG PO (07:03)
[2024-01-06] MEDS: LACTATED RINGERS 1,000 ML 42 ML IV (07:06)
--- NOTE | 2024-01-06 07:28 | PM.PREOP ---
Pre-operative Note Interval Note History & Physical reviewed/Exam performed by Physician: Yes Changes to H&P: No
--- NOTE | 2024-01-06 07:29 | P.OP_ITS ---
Operative Date/Time/Diagnoses Date of procedure: 01/06/24 Time of procedure: 08:00 Pre-op diagnosis: Left knee arthritis Post-op diagnosis: same Procedure & Clinicians Procedure: Left total knee arthroplasty CPT code 94450 Robotic assisted surgery [id number] Computer navigation [id number] Same procedure as scheduled: Yes Indications: The patient has significant pain associated with osteoarthritis of the left knee. It is associated with morning stiffness. Pain interferes with daily normal function including ambulation standing and any activities that are weight-bearing. It interferes with sleep. There is crepitation with range of motion. There is marked joint line tenderness. X-rays show significant levels of osteoarthritis. Double attempted previous conservative treatment has been rendered. The patient has failed exercise program, medications and previous injections. Patient is indicated for left total knee arthroplasty. The risks and benefits of the procedure have been discussed with the patient and given the opportunity to ask questions. The risks of surgery include but are not limited to infection, malunion, nonunion, persistence of pain, damage to nerves and blood vessels, posttraumatic arthritis, DVT, PE, cardiopulmonary complications and . The patient expressed a thorough understanding of the risks and benefits of surgery and has elected to proceed. Consent was signed. During the operation, the services of a physician surgical garment inspector were medically indicated and necessary to provide the exposure of the operative site for the surgical procedure and to maintain the limb in a proper position to carry out the operation safely and efficiently. Without a qualified legislative assistant being present this would extended the operative procedure and made the procedure technically more difficult to perform. Surgeon: Deloris Morales Certified Flight Instructor: Holger Samson Anesthesia Type: General, Peripheral nerve block and Local Operative Notes Findings: End-stage knee arthritis, left Closure Type: primary Specimen(s): none sent Prosthetic devices, grafts, tissues, transplants, or devices: Lerma and Nephew journey 2 bcs Femur cobalt chromium 5 left Tibia 4L Poly 10mm Patella 32x 7.5 round Estimated Blood Loss (mL): 100 Tourniquet time (min): 80 Procedure in detail: Patient was seen in the preoperative area where the patient and site of surgery were identified in the operative knee was marked informed consent confirmed. This was the left knee. Patient received the appropriate preoperative antibiotics this was 2 g of Ancef. And other preoperative medications and was t aken to the operating room placed on operating table in the supine position. Spinal anesthetic were administered. The operative extremity was then prepped and draped in the standard sterile fashion with a nonsterile tourniquet high on the thigh. Patient was placed on the green foam bolsters. A lateral post was placed at the level of the proximal thigh /trochanter area as a lateral post. Formal time-out procedure was performed confirming the patient's side and site of surgery and administration of appropriate preoperative antibiotics and implants were in the room accounted for. All were in agreement. Patient received a preoperative dose of tranexamic acid and then a 2nd dose at tourniquet release Patient was prepped and draped in the standard sterile fashion and the foot was placed into the leg bueno. This was taken into high flexion and the incision was marked out over the anterior knee to the level of the medial tubercle tubercle. The Esmarch was then used for exsanguination and the tourniquet was inflated to 250 mmHg. Was made through the skin and subcutaneous tissue in high flexion this was then brought down into 30? of flexion for the medial parapatellar arthrotomy. A marker pen was used to sara the arthrotomy site for later repair. Joint fluid was evacuated. The anterior osteophytes and soft tissues were removed. Routine medial release was initially made along the medial proximal tibia with Bovie. The patella was 1st cut using the saw sized and prepped and then subluxed throughout the case and protected. The leg was then taken into extension and the patella was everted and the patella was cut to accommodate the patellar button. This was sized to a 32 mm button for a 7.5 mm thickness to recreate the original dimensions of the patella. Poly was removed and the protector replaced and the patella was subluxed and the knee was taken back up into flexion and attention was returned to the femur. Then the rotational landmarks of [place] line and the trans epicondylar axis were marked on the femur with electrocautery. ACL and PCL were released. Then the Cori robotic pins were placed into the femur and tibia and the race set up. Landmarks were established and the robotic planning was commenced. Plan was developed and improved and adjusted as necessary to create a balanced knee. Initial alignment was 6? of varus, robotic planned alignment 0 ? and achieved 1 degree of varus. Once the plan was satisfactory the bur was used to remove the distal femur. Then robotic assistance was used to make the guide holes for the tibia cut and t hen the tibia cut was made and checked to match the computer navigation plan. This was trialed with the extension block matching the planned alignment. Attention was returned to the femur and Then the 5 in 1 cutting block was applied complete the femur cuts. The trials were placed. And the femoral notch was cut a standard fashion using Reamer then slap hammer. The knee was trialed and the checked. Knee was balanced in flexion extension 1-2 mm using the 10 mm poly. Range of motion 0-135 degrees was obtained. The rotation femoral trial was marked Bovie on the bone and checked with a long marshall. The tibia was then finished with a drill and flange cut and then The trial implants were removed. Then in extension the posterior capsule was injected with a mixture of 40 mL of 0.25% Marcaine and 20 mL of Exparel care to avoid excessive injection posterior laterally. The remainder of this was saved for the capsule and subcutaneous tissue and placed during cement curing. The wound and bone was irrigated with pulsatile lavage. This was then dried with a sponge. The components were verified and opened and the cement was mixed. Cement was applied to the components and then to the bone then the tibia was cemented in place 1st followed by the femur then the patella. Excess cement was removed. With care looking around the back of the knee. Remainder of the injection was injected around the capsule. trial poly was placed back in the leg was placed into extension for the patellar cementing. After this was cured approximately 15 minutes later and the dilute Betadine solution was placed for at least 3 minutes in the wound this was then irrigated out and the final poly was placed. This was a 10 mm poly. The tourniquet was released hemostasis was achieved. Final 1g of tranexamic acid was given IV at the time of tourniquet release. The capsule was closed with 1. Ethibond suture. Followed by a running Quill stitch. Subcutaneous layer was closed with 3-0 Vicryl suture. Skin was closed with a running V lock suture Stratafix Monocryl type suture and Dermabond. An Aquacel dressing was placed . An Bishop wrap was applied. Anesthetic was terminated the patient was woken from anesthesia and taken to recovery room in good condition. There no immediate complications from this procedure. The patient will be maintained on a standard total knee replacement protocol with weight-bearing as tolerated. Complications: none Post-operative Condition: stable Disposition: PACU Plan for aftercare: Weightbear as tolerated. Commence range of motion immediately. Work with physical therapy. Aspirin 81 mg b.i.d. x6 weeks for DVT prophylaxis. Orthopedic clinic in 2 weeks
--- NOTE | 2024-01-06 07:41 | SUR.PREOP ---
Block start time 722 . Left aductor canal block. Monitoring initiated and maintained throughout procedure. Oxygen and medications given per anesthesiologist instructions. 721 - Time out performed. 34 - Injection time. Patient remained stable throughout procedure, no adverse reactions noted. Block end time 35.
[2024-01-06] MEDS: CEFAZOLIN 2 GM/100 ML PREMIX 100 ML IV ×2 (07:58→16:34)
--- NOTE | 2024-01-06 08:38 | SUR.OPER ---
Supine on padded OR bed. Pillow under head, arms secured on padded armboards <90 degree abduction. Safety belt across torso. Non-operative leg secured with tape over blanket over lower leg. Operative leg secured in DeMayo/Dennis/Nathe positioner. Foam padded brace at thigh of operative leg.
[2024-01-06] MEDS: BUPIVACAINE LIPOSOME 266 MG/20 ML VIAL INJ (08:55)
[2024-01-06] MEDS: BUPIVACAINE 0.25% (PF) 60 ML, EPINEPHrine 0.3 MG INJ (08:55)
[2024-01-06] MEDS: HYDROMORPHONE 1 MG INJ IV ×4 (10:15→10:40)
[2024-01-06] MEDS: OXYCODONE IR 5 MG TABLET PO ×3 (10:17→18:21)
[2024-01-06] MEDS: LACTATED RINGERS 1,000 ML 100 ML IV (13:41)
--- NOTE | 2024-01-06 14:20 | PT.IIE ---
Current Diagnoses Unilateral primary osteoarthritis, left knee (01/06/24) Surgery Performed Operation Date: 01/06/24 07:45 Actual Procedures p Total Knee Arthroplasty - Robot(Left) - Deloris Morales MD Surgical History (Last Updated 12/29/23 @ 10:09 by Isabel Frey, RN) History of tonsillectomy (1961) Hx of oophorectomy (~1994) Hx of thyroidectomy (2003) Medical History (Last Updated 12/29/23 @ 10:09 by Isabel Frey RN) Easy bruisability Generalized anxiety disorder Graves' disease High cholesterol HTN (hypertension) IBS (irritable bowel syndrome) Major depressive disorder, recurrent Major depressive disorder, recurrent, in remission KONSTANTIN on CPAP Osteoarthritis Postural dizziness with near syncope Pre-diabetes PVC's (premature ventricular contractions) Physical Therapy Inpatient Evaluation/Re-Eval M1 PT/OT-IP Prior Functional Status Start: 01/06/24 16:02 Freq: NEEDED Status: Active Protocol: Document 01/06/24 14:20 AB (Rec: 01/06/24 16:18 AB [id number]) Medical Review Prior Functional Status Medical History Reviewed Yes Communication able to make needs known Mobility and Gait pt stated that she was modified independent with all mobilities and ambulation using a SPC Social History Household Members none Living Arrangements House Number of Floors (Floors) One Floor Number of Stairs To Enter/Railing? 1 step to enter Home Environment Standard Height Toilet,Walk in Shower Home Equipment Front Wheel Walker,Straight Cane,Raised Toilet Seat w/ Armrests,Hand Held Shower,Grab Bars Near Toilet Additional Social History Comment pt stated that her daughter will be staying with her for ~ 1week to assist her M2 PT-IP Current Condition Start: 01/06/24 16:02 Freq: NEEDED Status: Active Protocol: Document 01/06/24 14:20 AB (Rec: 01/06/24 16:18 AB [id number]) Physical Therapy Current Condition Current Condition Evaluation Date 01/06/24 Treatment Diagnosis s/p L TKA; difficulty in walking Onset Date 01/06/24 M3 PT-IP Subjective Start: 01/06/24 16:02 Freq: NEEDED Status: Active Protocol: Document 01/06/24 14:20 AB (Rec: 01/06/24 16:18 AB [id number]) Subjective Physical Therapy Visit Type Type Initial Evaluation Visit Start Time 14:20 Visit Stop Time 15:20 Number of MANAGER CAREER Visits 0 Physical Therapy Visit Comments Patient Comments requesting to use the toilet Therapy Pain Assessment Pain When Pain Assessed At Rest Pain Present Pain Present Pain Reported Location Left Knee Intensity 6 Scale Used Numeric (0 - 10) Pain Behaviors Facial Grimacing,Guarding, Holding Area Pain Management Techniques Apply Cold,Distraction, Modification of Treatment,Re- positioning,Timing of Activity with Medications M4 PT-IP Mobility and Gait Start: 01/06/24 16:02 Freq: NEEDED Status: Active Protocol: Document 01/06/24 14:20 AB (Rec: 01/06/24 16:18 AB [id number]) PT-Bed Mobility Assessment Supine to Sit Supine to Sit Standby Assistance,Head of Bed Elevated,Bedrails Sit to Supine Sit to Supine Standby Assistance PT-Transfer Assessment Sit to and From Stand Sit to and from Stand Maximum Assistance,2 Person Assistance,Use of Upper Extremities Equipment Transfer Assistive Device Gait Belt,Front Wheeled Walker Orthotic/Prosthetic Devices or Brace: No Transfers Transfer Destination Bedside Commode Transfer Technique Stand Step Pivot Transfer Ability Level of Assist Moderate Assistance,Maximum Assistance,1 Person Assistance ,2 Person Assistance,Use of Upper Extremities Comments Mobility Comments nurse stated that pt wants to use the toilet. checked on pt and requesting to use the toilet. BP in supine: 135/78. ROM and MMT tested. completed heel slides prior to mobility. pt able to completed supine to sit SBA and cues. able to sit on EOB SBA. c/o dizziness. BP 153/ 90. pt requested for jus the bedside commode due to urgency of using the toilet. Attempted to stand x 3 but pt unable despite max A provided. NAC came in to assist. pt completed sit to stand max A x 2 and max cues. step transfer to bedside commode mod A x 2 and cues. pt max A for standing balance using FWW for support. sit to stand from the commode mod A /max A and cues and step transfer to bed using FWW max A and cues. presents with unsteady steps and slgiht L knee buckling needing assist to stabilize. pt refused further activities and stated that she just wants to go back to bed. pt completed sit to supine SBA. positioned pt on the bed. obtained PLOF and home set up from pt. post-op folder provided and reviewed contents . reviewed HEP with pt. pt also agreed to have caregiver training tomorrow at 9 am and she will inform her daughter to come. call light and table placed next to pt. PT-Balance Assessment Sitting Balance and Reactions Static Sitting Balance Ability Good Dynamic Sitting Balance Ability Good Standing Balance and Reactions Static Standing Balance Ability Poor Dynamic Standing Balance Ability Poor Device Used FWW M5 PT-IP Objective Assessments Start: 01/06/24 16:02 Freq: NEEDED Status: Active Protocol: Document 01/06/24 14:20 AB (Rec: 01/06/24 16:18 AB [id number]) Orientation Orientation/Cognition Level of Alertness Alert Orientation Name,Place,Situation Language Function Ability No Deficits Noted Safety Awareness Decreased Safety Awareness Memory Description No Deficits Noted Gross Range of Motion Lower Extremity ROM Assessment Left Impaired Impairments L knee flexion ~ 50 deg L knee extension: ~ 15 deg less to 0 Strength Lower Extremity Strength Assessment Left Impaired Knee 3+/5 Sensation Assessment Sensation Gross Sensation WNL Muscle Tone Muscle Tone WNL Yes M6 PT-IP Treatment Start: 01/06/24 16:02 Freq: NEEDED Status: Active Protocol: Document 01/06/24 14:20 AB (Rec: 01/06/24 16:18 AB [id number]) Physical Therapy Treatment Exercises Exercises Heel Slides Education Education Provided Precautions,Weight Bearing Status,Post-Op Packet,Safety M7 PT-IP Assessment and Plan Start: 01/06/24 16:02 Freq: NEEDED Status: Active Protocol: Document 01/06/24 14:20 AB (Rec: 01/06/24 16:18 AB [id number]) PT Summary Assessment and Plan Potential Rehabilitation Potential Fair Status of Condition at Evaluation Evolving Summary Impairments Pain,ROM,Strength,Balance, Coordination,Sensation,Tone, Cognition,Bed Mobility, Transfers,Gait,Activity Tolerance Assessment Summary pt is a 73 y/o F s/p L TKA POD 0. pt requiring max A x 2 for sit to stand and mod A x 2 to mod/max A x2 with transfers and unable to walk at this time. pt stated that her daughter will stay with her for ~ 1 week to assist her . caregiver training set up at 9 am tomorrow. will continue to assess progress. d /c plan depending on progress and if daughter will be able to provide pt the assistance she needs. Goals Bed Mobility Goal Independent Transfer Goal Independent,Front Wheeled Walker Gait Goal Independent,Front Wheel Walker Gait Distance 150 Other Goals up/down 1 step using FWW SBA Days to Meet Goals 5 Frequency of Treatment Frequency Of Treatment Twice a Day Treatment Plan Physical Therapy Treatment Plan Bed Mobility Training,Transfer Training,Gait Training, Therapeutic Exercise,Balance Retraining,Post Op Education, Discharge Planning,Hot or Cold Pack,Neuromuscular Re-ed, Coordination Retraining,Manual Therapy Other Recommendations and Next Treatment caregiver trainin01/07/24 @ [facility] 9 am Weight Bearing Status Weight Bearing Status Weight Bear as Tolerated Allowed Weight Bearing Amount (enter % LLE WBAT or #) (%) Recommendations To Nursing Amount of Assist Needed 2 Person Assist Discharge Recommendations PT Discharge Recommendations Home with 05/01 Assist Available,Home Health,SNF Rehab Transportation Needs at Discharge Private Vehicle,Wheelchair/ Cabulance
--- NOTE | 2024-01-06 15:33 | OT.IPNOTE ---
Pt states too tired to get up again after just seeing PT. TO check on the pt tomorrow. NO charge.
[2024-01-06] MEDS: IBUPROFEN 400 MG TABLET PO ×2 (17:20→21:20)
[2024-01-06] MEDS: AMLODIPINE 5 MG TABLET PO (17:21)
[2024-01-06] MEDS: ACETAMINOPHEN 325 MG TABLET 650 MG PO (18:21)
[2024-01-06] MEDS: MELATONIN 3 MG TABLET PO (21:22)
[2024-01-06] MEDS: ASPIRIN EC 81 MG TABLET PO (21:22)
[2024-01-06] MEDS: DOCUSATE 100 MG CAPSULE PO (21:23)
[2024-01-06] MEDS: PROPRANOLOL 10 MG TABLET PO (21:23)
[2024-01-06] MEDS: SENNOSIDES 8.6 MG TABLET 17.2 MG PO (21:23)
[2024-01-07] MEDS: LACTATED RINGERS 1,000 ML 100 ML IV (00:01)
[2024-01-07] MEDS: CEFAZOLIN 2 GM/100 ML PREMIX 100 ML IV (00:01)
[2024-01-07] MEDS: OXYCODONE IR 5 MG TABLET PO ×4 (00:02→12:46)
[2024-01-07] MEDS: IBUPROFEN 400 MG TABLET PO ×4 (00:03→12:16)
[2024-01-07 04:15] VITALS: PULSE 80; RESP 14; O2SAT 92
[2024-01-07] MEDS: LEVOTHYROXINE 75 MCG TABLET PO (06:30)
[2024-01-07] MEDS: ACETAMINOPHEN 325 MG TABLET 650 MG PO ×2 (06:30→12:16)
[2024-01-07 07:02] LABS: Hematocrit 35.4 % (36-46); Hemoglobin 11.9 g/dL (12.0-16.0)
--- NOTE | 2024-01-07 08:40 | OT.IP.TRT ---
Current Diagnoses Unilateral primary osteoarthritis, left knee (01/06/24) Surgery Performed Operation Date: 01/06/24 07:45 Actual Procedures p Total Knee Arthroplasty - Robot(Left) - Deloris Morales MD Occupational Therapy Treatment Note M2 OT-IP Current Condition Start: 01/07/24 10:59 Freq: Status: Active Protocol: Document 01/07/24 10:59 [facility] (Rec: 01/07/24 11:12 [facility] [id number]) Occupational Therapy Current Condition Current Condition Evaluation Date 01/07/24 Treatment Diagnosis S/P L TKA Diagnosis Onset Date 01/06/24 Weight Bearing Status Weight Bearing Status Weight Bear as Tolerated M3 OT- IP Subjective and Pain Start: 01/07/24 10:59 Freq: Status: Active Protocol: Document 01/07/24 10:59 [facility] (Rec: 01/07/24 11:12 [facility] [id number]) OT- Subjective Occupational Therapy Visit Type Type Initial Evaluation Visit Start Time 08:40 Visit Stop Time 09:24 Occupational Therapy Visit Comments Patient Comments Pt agreed to get up and get dressed. Patient/Caregiver Goals TO go home. OT Pain Assessment Pain When Pain Assessed During Mobility Pain Present Pain Present Pain Reported Location Left Knee Intensity 6 Scale Used Numeric (0 - 10) M4 OT- IP ADL's Start: 01/07/24 10:59 Freq: Status: Active Protocol: Document 01/07/24 10:59 [facility] (Rec: 01/07/24 11:12 [facility] [id number]) OT [id number] General Evaluation Self-Feeding Ability Independent OT ADL-Grooming General Evaluation Grooming Ability Standby Assistance Comments OT Grooming Comments Set-up while seated. OT ADL-Oral Care General Eval Oral Care Ability Independent OT ADL-Dressing General Eval Upper Body Dressing Ability Independent Lower Body Dressing Ability Contact Guard Assistance Comments OT Dressing Comments Pt able to put dress over top of her head. Use of door to door salesperson to assist to get brief over her feet and CGA for balance while pulling the brief up over her hips. OT ADL-Toileting General Evaluation Toileting Ability Minimal Assistance Areas Needing Assistance Manage Clothing Comments OT Toileting Comments Suggested use of wipes and to be mindful of her left knee positioning while wiping. OT ADL-Bathing Comments OT Bathing Comments Pt states to just sponge off initially and suggested pt get a shower chair. M5 OT- IP IADL's Start: 01/07/24 10:59 Freq: Status: Active Protocol: Document 01/07/24 10:59 [facility] (Rec: 01/07/24 11:12 [facility] [id number]) OT-Instrumental Activities of Daily Living Deficits IADL Deficits Identified Deficits Home Safety Awareness Awareness of Need for Assistance at Home Good Awareness Ability to Problem Solve Emergency Able to Problem Solve Situations Home Safety Comments Pt's daughter to stay with her to assist. Medication Management Medication Management No Deficits Identified Money Management Money Management No Deficits Identified Meal Preparation Meal Preparation Caregiver Provides Assist Exchange Consultant Exchange Consultant Caregiver Provides Assist M6 OT- IP Functional Cognition Start: 01/07/24 10:59 Freq: Status: Active Protocol: Document 01/07/24 10:59 [facility] (Rec: 01/07/24 11:12 [facility] [id number]) Cognitive Factors Limiting Selfcare Function Cognitive Ability Level of Alertness Alert Patient Orientation Name,Age,Birthday,Month,Date, Year,Day of Week,Place, Situation Attention Span Ability Capable of Focused Attention, Capable of Sustained Attention Ability to Follow Commands Able to Follow One Step Commands Cognitive Comments Cognitive Assessment Comments Pt able to follow commands for ADL and mobility needs. Pt just needing reminders to push up from surfaces versus the FWW to stand. OT- Vision and Hearing OT- Hearing Assessment OT- Hearing Assessment WFL OT- Vision Assessment Visual Acuity Glasses All The Time Visual Attentiveness WFL Occular Pursuits WFL M7 OT- IP Mobility and Balance Start: 01/07/24 10:59 Freq: Status: Active Protocol: Document 01/07/24 10:59 [facility] (Rec: 01/07/24 11:12 [facility] [id number]) OT- Bed Mobility Assessment Supine to Sit Supine to Sit Assist Standby Assistance,Minimal Assistance Sit to Supine Sit to Supine Assist Standby Assistance,Minimal Assistance OT-Transfer Assessment Sit to and From Stand Sit to and from Stand Minimal Assistance Transfers Transfer Ability Minimal Assistance Technique Transfer Destination Bed,Bedside Commode Devices Transfer Assistive Devices Gait Belt,Front Wheeled Walker Comments Mobility Comments ROB for LLE in and out of the bed and able to have pt try use of gait belt to assist. ROB to stand to the FWW and for balance and able to transfer to the BSC. Pt moving slowly and needing a little steadying while on her feet. OT- Balance Assessment Sitting Balance and Reactions Static Sitting Balance Ability Good Dynamic Sitting Balance Ability Fair Standing Balance and Reactions Static Standing Balance Ability Fair Dynamic Standing Balance Ability Fair M8 OT- IP Objective Assessments Start: 01/07/24 10:59 Freq: Status: Active Protocol: Document 01/07/24 10:59 [facility] (Rec: 01/07/24 11:12 [facility] [id number]) OT Gross Range of Motion Upper Extremity Range of Motion Assessment Within Functional Limits M9 OT- IP Assessment and Plan Start: 01/07/24 10:59 Freq: Status: Active Protocol: Document 01/07/24 10:59 [facility] (Rec: 01/07/24 11:12 [facility] [id number]) OT Summary Assessment and Plan Potential Rehabilitation Potential Good Analytic Complexity at Evaluation Low Summary OT Impairments Pain,Strength,Balance, Functional Mobility,Dressing, Toileting,Bathing,Toilet Transfers,Shower Transfers, Activity Tolerance Progress Towards Goals Slow Progress due to Pain,Slow Progress due to Activity Tolerance Assessment Summary Pt low complexity and main barriers are pain, step, and moving slowly. Pt will need assist with ADL and mobility needs at this time. Pt will benefit from having the BSC next to the bed and call for daughter for assist. Pt to go home with assist and outpt PT. Goals Grooming Goal Independent Dressing Goal Independent Toileting Goal Independent Bathing Goal Standby Assistance Toilet Transfer Goal Independent Shower Transfer Goal Standby Assistance Days to Meet Goals 7 Frequency of Treatment Other frequency 5x/wk Treatment Plan OT Treatment Plan ADL Training,Functional Mobility,Patient/Family Education,Discharge Planning Discharge Recommendations OT Discharge Recommendations Home with 05/01 Assist Available,Outpatient PT Home Equipment Needs shower chair, long handled brush Transportation Needs at Discharge Private Vehicle
[2024-01-07 08:47] VITALS: BP 133/82
[2024-01-07] MEDS: LOSARTAN 50 MG TABLET PO (08:47)
[2024-01-07] MEDS: PROPRANOLOL 10 MG TABLET PO (08:47)
[2024-01-07] MEDS: ASPIRIN EC 81 MG TABLET PO (08:47)
[2024-01-07] MEDS: polyethylene glycoL 3350 17 GM POWD.PACK PO (08:47)
[2024-01-07] MEDS: DOCUSATE 100 MG CAPSULE PO (08:47)
[2024-01-07 08:50] VITALS: BP 117/70; PULSE 70; RESP 16; TEMP 36.3; O2SAT 93
--- NOTE | 2024-01-07 09:14 | CM.DANOTE ---
Initial DCP Assessment Visit Note Reviewed EMR and team rounds for status updates. Met with pt at bedside to introduce self and role, pt was found to be sitting upright in bed, appearing comfortable, alert/oriented and eating her breakfast. Pt resides alone/independently in her own home in [place]. She states that her dtr will be staying with her for the first 24-hours after discharging home, she will also be transporting pt home. Payor: [facility] Adv Attending: Dr. Morales PT is a 73 year-old F post-op day 1 from a L-total knee arthroplasty surgery. She has a hx of progressively worsening L-knee pain this has constant, aching pain. She has tried several conservative efforts at pain control, including injections, exercise modification, however the injections are no longer as effective and are not lasting as long as they did in the past. She uses a cane at baseline. DCP will continue to follow for any further evolving needs prior to d/c home, which is anticipated later this morning. Pt denies any DCP assistance or needs at this time. Discharge Planning/Care Management CM Discharge Assessment Start: 01/07/24 09:09 Freq: Status: Active Protocol: Document 01/07/24 09:09 [facility] (Rec: 01/07/24 09:13 [facility] [id number]) Discharge Planning Assessment Assigned [employer] Senior Officer MARCOS Carty Advance Directives? No Advance Directives on File No History Provided By Patient,Medical Record Prior Living Arrangements House Household Members none Type of transporation used prior to Drives own vehicle admit Independent with ADL's Yes Is patient alert and oriented? Yes Caregiver for Another No DME Already Rented / Owned Cane Patient/Family Preference OP PT Therapy Barriers to Discharge No Discharge Plan Home Community Services Physical Therapy Transportation Arrangement Daughter Referrals Initiated None needed Whiteboard Updated in Patient Room with Yes name and ext. # of [employer] Senior Officer Review Status In Process Please Provide Date Initial DC 01/07/24 Assessment Was Performed Pre-Anesthesia Assessment Start: 12/29/23 09:44 Freq: Status: Active Protocol: Document 12/29/23 09:44 [facility] (Rec: 12/29/23 10:29 [facility] [id number]) Pre-Anesthesia Assessment Patient Information Reviewed Via Phone Assessment Assessment Completed With Patient Diagnostic Results BMP/CMP,CBC,EKG Comment Labs @ [facility] 10/06/23, outside EKG scanned Primary Care Provider Suzie Richards Seen Specialist in Last 12 Months Yes Specialist Seen Orthopedist,Other Comment Psychiatry Primary Language Malian Steam Distribution Supervisor Required No Height 165.1 cm Weight 87.997 kg Body Mass Index (BMI) 32.3 Hearing Ability Normal Visual Assist Glasses Dentition Type Teeth, Natural Present Barriers to Learning None Hx Anesthesia Reactions No Hx Family Anesthesia Reaction No Hx Malignant Hyperthermia No Hx Blood Transfusions No Anesthesia Review Requested No University Internship No alcohol intake never Smoking Status Never smoker Substance Use Type does not use Pain Present Pain Reported Musculoskeletal Symptoms Abnormal Gait,Difficulty Walking,Joint Pain History of Falling (Recent or History of Yes ) Patient is completely paralyzed or No completely immobile Prosthesis or Orthotic Device Cane Mental Status Oriented to own ability Is patient on oxygen? No Does patient have RAMOS/SOB Yes: With housework Hx Sleep Apnea Yes CPAP/BIPAP use prescribed and used routinely Will Bring CPAP/BIPAP DOS Yes Comment Chronic cough Currently Taking a Beta [place] Yes: Propranolol Can You Climb a Flight of Stairs Without Yes SOB Hx Chest Pain No Hx SOB Yes Hx Syncope or Dizziness No Anti-Coagulant Therapy No Has a Sound Art Instructor Yes: Visit 10/29/[address] Sewell Cardiac Testing Yes: Cardiac MRI 02/11/23 Hx Pacemaker/ICD No Pacemaker Rep Required? No Cardiac Clearance Received No Comment Cardiac records scanned and in surgery folder Diet Type At Home Regular Dysphagia No Gastrointestinal Symptoms Constipation,Cramping,Diarrhea Chronic UTI No Bladder Pattern Nocturia,Urgency Urinary Catheter Present No Hx Urinary Self Catheterization No Diabetes No: Pre-diabetes HgbA1C 6.1 Date 10/06/23 Patient No Lactating No Hx Drug Resistant Organism No Presence of External or Internal Medical Yes: CPAP Devices Marital Status / Lives With none Current Living Arrangements House Number of Floors (Floors) One Floor Number of Stairs To Enter/Railing? 0 Support System Child/Children Does the Patient Have Assistance After Daughter will stay 3 days to Surgery assist w/DC, no help after Patient Discharge Plan Description Return Home Feels Safe in Current Environment Yes Been Physically Hurt or Threatened By a No Person in Current Environment Do you have thoughts of harming yourself None or others? Are you currently considering suicide? No Do you have a plan to hurt yourself or No Plan others? Do You Have Any Spiritual Beliefs That No May Affect Your HC Choices? Do You Have Any Cultural Practices That No May Affect Your HC Choices? Comment Akira Who Can We Speak to About Patient's Care Family, friends Identifying Code for Release of Patient Declines to issue Information Health Care Proxy/Next of Kin Suzie Story (daughter) Health Care Proxy Emergency Contact Name Suzie Story (daughter) Emergency Contact Advance Directives? No Advance Directives on File No Requested Patient Bring Advanced Yes Directives DOS Power of [place] Yes Power of [place] Name Suzie Story (vic) Power of [place] PAC Instructions Assistance for 24 hours post- op,Bring CPAP/BIPAP,Do not shave/clip surgical site, Durable medical equipment, Medications to take/avoid, Nasal antibiotic,No ETOH/ petroleum product on skin DOS, NPO,Post-op transportation,Pre -surgical wash,Sturdy shoes/ comfortable clothes,Do not bring valuables and remove jewelry
[2024-01-07] MEDS: DESVENLAFAXINE SUCCINATE 100 MG 200 EACH PO (09:44)
--- NOTE | 2024-01-07 10:25 | PT.IPTN ---
Current Diagnoses Unilateral primary osteoarthritis, left knee (01/06/24) Surgery Performed Operation Date: 01/06/24 07:45 Actual Procedures p Total Knee Arthroplasty - Robot(Left) - Deloris Morales MD Physical Therapy Treatment Note M2 PT-IP Current Condition Start: 01/06/24 16:02 Freq: NEEDED Status: Active Protocol: Document 01/07/24 10:00 SP (Rec: 01/07/24 12:54 SP [id number]) Physical Therapy Current Condition Current Condition Evaluation Date 01/06/24 Treatment Diagnosis s/p L TKA; difficulty in walking Onset Date 01/06/24 M3 PT-IP Subjective Start: 01/06/24 16:02 Freq: NEEDED Status: Active Protocol: Document 01/07/24 10:00 SP (Rec: 01/07/24 12:54 SP [id number]) Subjective Physical Therapy Visit Type Type Treatment Note Visit Start Time 10:00 Visit Stop Time 10:25 Notes Daughter in room, completed caregiver training. Number of DEPLOYMENT SPECIALIST Visits 1 Physical Therapy Visit Comments Patient Comments Pt agreeable to working with therapy. Therapy Pain Assessment Pain When Pain Assessed During Mobility Pain Present Pain Present Pain Reported Location Left Knee Scale Used low, sore (no scale reported) Pain Behaviors Facial Grimacing Pain Management Techniques Apply Cold,Distraction, Elevation,Timing of Activity with Medications M4 PT-IP Mobility and Gait Start: 01/06/24 16:02 Freq: NEEDED Status: Active Protocol: Document 01/07/24 10:00 SP (Rec: 01/07/24 12:54 SP [id number]) PT-Transfer Assessment Sit to and From Stand Sit to and from Stand Standby Assistance,Use of Upper Extremities Equipment Transfer Assistive Device Gait Belt,Front Wheeled Walker Orthotic/Prosthetic Devices or Brace: No Transfers Transfer Destination Chair Transfer Technique pt ambulated /c FWW Transfer Ability Level of Assist Standby Assistance,Contact Guard Assistance,1 Person Assistance,Use of Upper Extremities Comments Mobility Comments Pt long sitting in chair, legs elevated. Instructed pt post op exercises: AP, QS, GS, ankle pumps, heel slide with added support of gait belt on L foot /c education importance of progress AAROM up to 90 deg tolerated and awareness of circulation for prevention blood clot. Approx 50 deg L knee flexion during active knee flexion foot on floor, AAROM therapist support approx 60 deg, daughter stated can assist AAROM. Pt Scoot EOchair , STS chair arms SBA to FWW. Gait around room 15 ft close SBA ed knee flexion heel toe quality movement, semi stepping stride. Pt completed 1 step mgt /c FWW, daughter provided CGA via gait belt. Gait 20 ft /c FWW back to room chair step to but improved bigger stride and self corrections knee mobility. Cues for marching step pivot and back, reach back and slow descend to sit in chair SBA. pt slow to move, durance and cuing. DEPLOYMENT SPECIALIST recommended HHPT at this time with patient and daughter in agreement, daughter only can help next few days and not able to get her to outpatient appts. Pt planned on being able to drive self to outpatient, education she not able to drive physician will clear her when ready. DEPLOYMENT SPECIALIST notified care mgt and nursing. Gait Assessment Gait Gait Assistance Required: Standby Assistance Distance (Feet) 45 Able to Maintain Weight Bearing Status Yes During Gait Assistive Devices Assistive Device Gait Belt,Front Wheeled Walker Gait Deviations General Gait Pattern Antalgic,Decreased Stride Length,Decreased Feet Clearance,Narrow Based Gait, Step-to Gait Factors Limiting Gait Function Factors Limiting Gait Function Decreased Activity Tolerance, Decreased Strength,Limited Range of Motion,Pain,Poor Safety Awareness Comments Gait Comments see mobility comments Stair Climbing Assessment Evaluation Level of Assist On Stairs Contact Guard Assistance,1 Person Assistance Devices Stair Climbing Assistive Devices Front Wheel Walker Technique/Endurance Stair Climbing Direction Ascend and Descend Stair Climbing Technique Step to Step Number of Steps Climbed 1 Stair Climbing Set # Repetitions (reps) 1 Comments Stair Climbing Comments see mobility comments PT-Balance Assessment Sitting Balance and Reactions Static Sitting Balance Ability Normal Dynamic Sitting Balance Ability Normal Standing Balance and Reactions Static Standing Balance Ability Good Dynamic Standing Balance Ability Fair Device Used FWW M5 PT-IP Objective Assessments Start: 01/06/24 16:02 Freq: NEEDED Status: Active Protocol: Document 01/06/24 14:20 AB (Rec: 01/06/24 16:18 AB [id number]) Orientation Orientation/Cognition Level of Alertness Alert Orientation Name,Place,Situation Language Function Ability No Deficits Noted Safety Awareness Decreased Safety Awareness Memory Description No Deficits Noted Gross Range of Motion Lower Extremity ROM Assessment Left Impaired Impairments L knee flexion ~ 50 deg L knee extension: ~ 15 deg less to 0 Strength Lower Extremity Strength Assessment Left Impaired Knee 3+/5 Sensation Assessment Sensation Gross Sensation WNL Muscle Tone Muscle Tone WNL Yes M6 PT-IP Treatment Start: 01/06/24 16:02 Freq: NEEDED Status: Active Protocol: Document 01/07/24 10:00 SP (Rec: 01/07/24 12:54 SP [id number]) Physical Therapy Treatment Exercises Exercises Ankle Pumps,Gluteal Sets,Quad Sets,Heel Slides,Seated Knee Flexion/Extension Knee ROM Measurement see mob comments Education Education Provided Weight Bearing Status,Post-Op Packet,Safety M7 PT-IP Assessment and Plan Start: 01/06/24 16:02 Freq: NEEDED Status: Active Protocol: Document 01/07/24 10:00 SP (Rec: 01/07/24 12:54 SP [id number]) PT Summary Assessment and Plan Potential Rehabilitation Potential Fair Status of Condition at Evaluation Evolving Summary Impairments Pain,ROM,Strength,Balance, Coordination,Sensation,Tone, Cognition,Bed Mobility, Transfers,Gait,Activity Tolerance Progress Towards Goals Slow Progress due to Pain,Slow Progress due to Activity Tolerance Assessment Summary Pt SBA throughout tx sit stand , gait /c FWW 45 ft, completed 1 step mgt /c FWW, daughter was able to provide pt the assistance she needs but low endurance during mobility, recommending HHPT 05/01 with pt and daughter in agreement, daughter will assist her for a week but not be there long to help to outpatients so asking HHPT. Pt is ok to go home when medically cleared. Goals Bed Mobility Goal Independent Transfer Goal Independent,Front Wheeled Walker Gait Goal Independent,Front Wheel Walker Gait Distance 150 Other Goals up/down 1 step using FWW SBA Days to Meet Goals 5 Frequency of Treatment Frequency Of Treatment Twice a Day Treatment Plan Physical Therapy Treatment Plan Bed Mobility Training,Transfer Training,Gait Training, Therapeutic Exercise,Balance Retraining,Post Op Education, Discharge Planning,Hot or Cold Pack,Neuromuscular Re-ed, Coordination Retraining,Manual Therapy Other Recommendations and Next Treatment further distance gait /c FWW, Focus ther ex. Weight Bearing Status Weight Bearing Status Weight Bear as Tolerated Allowed Weight Bearing Amount (enter % LLE WBAT or #) (%) Recommendations To Nursing Amount of Assist Needed Standby Assistance Discharge Recommendations PT Discharge Recommendations Home with 05/01 Assist Available,Home Health,SNF Rehab Transportation Needs at Discharge Private Vehicle
--- NOTE | 2024-01-07 10:58 | CM.DPC ---
DCP Cont. Reviewed EMR and team rounds for status updates. Pt has been medically cleared for home d/c, her dtr is here at bedside and and will be transporting her. Sent referral and clinicals to [facility] for PT/OT. Orders are in the EMR and the F/F was faxed to [facility] with the clinicals. No further DCP needs identified at this time.
--- NOTE | 2024-01-07 12:36 | PM.DS.1 ---
History of Present Illness History of Present Illness Chief complaint: OPB Narrative: Shirley is a pleasant 73 year old female who is POD#1 s/p L TKA by Dr. Morales. Overall patient reports she is doing well, she worked w/ PT this morning and did well, she feels stable enough to d/c to home. She lives alone but her daughter is going to be staying with her for 7-10 days post-op. She has walker at home already. She has outpatient PT scheduled already. She does not have post-op meds yet. She has been urinating well w/o issue. She states her pain is moderate but well controlled w/ oral Oxycodone. Denies fever, chills, chest pain, SOB, nausea or vomiting. Operative Date/Time/Diagnoses Date of procedure: 01/06/24 Time of procedure: 08:00 Pre-op diagnosis: Left knee arthritis Post-op diagnosis: same Procedure & Clinicians Procedure: Left total knee arthroplasty CPT code 12426 Robotic assisted surgery [id number] Computer navigation [id number] Same procedure as scheduled: Yes Indications: The patient has significant pain associated with osteoarthritis of the left knee. It is associated with morning stiffness. Pain interferes with daily normal function including ambulation standing and any activities that are weight-bearing. It interferes with sleep. There is crepitation with range of motion. There is marked joint line tenderness. X-rays show significant levels of osteoarthritis. Double attempted previous conservative treatment has been rendered. The patient has failed exercise program, medications and previous injections. Patient is indicated for left total knee arthroplasty. The risks and benefits of the procedure have been discussed with the patient and given the opportunity to ask questions. The risks of surgery include but are not limited to infection, malunion, nonunion, persistence of pain, damage to nerves and blood vessels, posttraumatic arthritis, DVT, PE, cardiopulmonary complications and . The patient expressed a thorough understanding of the risks and benefits of surgery and has elected to proceed. Consent was signed. During the operation, the services of a physician surgical instrument technician were medically indicated and necessary to provide the exposure of the operative site for the surgical procedure and to maintain the limb in a proper position to carry out the operation safely and efficiently. Without a qualified product development assistant being present this would extended the operative procedure and made the procedure technically more difficult to perform. Surgeon: Deloris Morales Script Artist: Holger Samson Anesthesia Type: General, Peripheral nerve block and Local Discharge Providers Provider Discharge Date: 01/07/24 Primary care physician: JUANCHO Cox Consults: 01/06/24 06:00 Consult to Anesthesiology Routine Comment: Consulting Provider: Anesthesiologist Reason for consultation: Regional block for post operative pain control Has provider been notified: No 01/06/24 12:37 Consult to Discharge Planning Routine Comment: home health? Consult to Occupational Therapy Evaluate & Treat Comment: Physician Instructions: Evaluate and treat Consult to Physical Therapy Evaluate & Treat Comment: Physician Instructions: postop TKA protocol 01/07/24 10:45 Consult to Home Health Routine Comment: PT, OT Reason For Exam: Home Health Services Discharge provider: Miriam Oliver PA-C Summary Hospital Course Discharge Diagnosis: L knee OA s/p L TKA, stable. Hospital Course: Uncomplicated hospital course. Exam Vital Signs (past 8 hours): - 01/07/24 08:47 01/07/24 08:50 01/07/24 11:14 Temperature 97.4 F L Pulse Rate 70 Respiratory Rate 16 Blood Pressure 133/82 117/70 Pulse Oximetry 93 Oxygen Delivery Method Room Air Oxygen Flow Rate 0 Fraction of Inspired Oxygen 21 Fraction of Inspired Oxygen 21 Oxygen Delivery Method Room Air Oxygen Flow Rate 0 Narrative Exam Narrative: Patient sitting comfortably in bedside chair during our interview today. No acute distress. AOx3. Grossly normal alignment of the LLE with moderate swelling to the L lower extremity. 5/5 strength with DF, PF, EHL bilaterally. Gross sensation intact throughout bilateral lower extremities. Calves soft and non-tender bilaterally. SCDs are on and functioning Brisk capillary refill, pulses intact. Post-surgical Aquacel dressing clean, dry and intact over the left knee without drainage. Resp Effort & Inspection: normal respiratory effort and able to speak in complete sentences Objective Labs 01/07/24 06:47 Labs: Laboratory Results - last 24 hr 01/07/24 06:47 Hgb 11.9 L Hct 35.4 L PFSH Medical History (Updated 12/29/23 @ 10:09 by Isabel Frey RN) Easy bruisability Osteoarthritis Graves' disease Pre-diabetes IBS (irritable bowel syndrome) High cholesterol PVC's (premature ventricular contractions) HTN (hypertension) KONSTANTIN on CPAP Postural dizziness with near syncope Major depressive disorder, recurrent, in remission Major depressive disorder, recurrent Generalized anxiety disorder Surgical History (Updated 12/29/23 @ 10:09 by Isabel Frey RN) History of tonsillectomy (196) Hx of thyroidectomy (2003) Hx of oophorectomy (~1994) Social History household members: none Smoking Status: Never smoker alcohol intake: never Discharge Assessment & Plan Assessment and Plan Assessment: L knee OA s/p L TKA, stable. Plan of Treatment: 1) Plan to discharge to home today with daughter. 2) Continue multimodal pain management with ice to the knee for additional pain control. 3) ASA b.i.d. for DVT prophylaxis for 6 weeks. 4) Start outpatient physical therapy to work on range of motion and mobility. WBAT. 5) Keep dressing intact, clean, dry until 2 week postop appointment. No soaking the incision site in pools or tubs. No topical ointments or creams to the incision site. 6) Follow up at [facility] in 2 weeks for a postop appointment and wound check. All patient's questions were answered, they demonstrates understanding and are in agreement with the plan. Call our office if any questions or concerns arise. Discussed red flag symptoms and return precautions. Discharge Plan Discharge Plan Patient Disposition: Home Discharge orders & Medications Discharge Orders: Discharge (Order); Ordered 01/07/24 Ordered By: Miriam Oliver Prescriptions: New acetaminophen 325 mg Tablet 650 mg PO Q6H Qty: 90 1RF aspirin 81 mg Tablet,Delayed Release (Dr/Ec) 81 mg PO BID Qty: 90 0RF docusate sodium 100 mg Capsule 100 mg PO BID Qty: 30 0RF ibuprofen 400 mg Tablet 400 mg PO Q4H Qty: 90 0RF hydroxyzine HCl 25 mg Tablet 25 mg PO Q6H PRN (Reason: Nausea) Qty: 20 0RF oxycodone 5 mg Tablet 5 mg PO Q4-6H PRN (Reason: Pain, Moderate (4-6)) Qty: 30 0RF Continued amlodipine 5 mg tablet 5 mg PO QPM desvenlafaxine succinate [Pristiq] 100 mg tablet extended release 24 hr 200 mg PO DAILY Qty: 180 3RF melatonin 3 mg capsule 3 mg PO BEDTIME losartan 50 MG tablet 50 mg PO DAILY Qty: 0 levothyroxine [Synthroid] 75 MCG tablet 75 mcg PO DAILY Qty: 30 clonazepam 0.5 mg tablet 0.5 mg PO BEDTIME PRN (Reason: anxiety) 90 Days Qty: 90 1RF propranolol 10 mg tablet 10 mg PO BID Follow up/Referrals: Suzie Richards ARNP [Primary Care Provider] - Deloris Morales MD [Physician] - (Follow up at [facility] as scheduled in 2 weeks. ) Diet/Activity/Treatments Activity: Weightbearing as tolerated. Work with outpatient physical therapy to improve range of motion and strength. Cold/Heat Therapy: Ice to the knee for additional pain control Other treatments: Medications: -Aspirin 81mg twice daily x6 weeks to prevent blood clots. -OTC Tylenol 500 mg 1 tablet every 4 hours as needed for pain/fever. Max 6 tablets per day. (take scheduled every 4-6 hours for the first few days to week after schedule to help stay on top of your pain) -Ibuprofen 400 mg 1 tablet every 4 hours as needed for pain/inflammation. Max 2,400 mg per day. (take scheduled for the first few days-week after surgery to stay on top of your pain) -Oxycodone 5 mg take 1-2 tablets (5-10mg) every 4 hours as needed for moderate-severe pain (narcotic pain medication). (maximum dose for very severe pain would be 3 pills (15mg) every 3 hours) -Vistaril (hydroxyine) 25mg 1 tab every 4 hours as needed for spasms/pain/nausea. -ondansetron 4mg - 1 tab every 8 hours as needed for nausea -As needed medications: -Ducolax and /or MiraLax as needed for constipation from narcotic pain medications. -Pepcid AC as needed for stomach upset (usually from aspirin or ibuprofen). Dressing/Wound care: -Remove the Bishop wrap 48 hours after surgery. -Keep Aquacell dressing in place until postoperative follow-up office visit. -Okay to shower. Keep wound out of direct water stream. No soaking or submerging until all the scabs fall off (approximately 4-6 weeks). -No lotions, ointments, or scar creams directly to the incision until the wound is healed (4-6 weeks), -Please call the office if dressing becomes wet, soiled, or saturated. Activities: -Weight-bearing as tolerated. Use front wheeled walker, and progress to cane when safe. -Continue with home exercises as directed by your physical therapist. (work on getting your leg. knee fully straight and bending knee as well- motion after knee replacement is very important) -should have outpatient Physical Therapy visits set up to start within 1 week after surgery -Elevate ?toes above the nose if you have significant swelling in your lower leg. (A wedge pillow is easiest.) -Ice your incision as needed for pain/inflammation/swelling. Protect your skin with a folded pillowcase. -Incentive Spirometer (breathing device from [facility]): 5-10xs every hour while awake for the first 1-2 weeks. Follow-up: -Follow-up with your surgeon or PA in the office in 10-14 days after surgery. -Follow-up with your surgeon 6 weeks postoperatively. Contact the office if you have any of the following: ? Painful swelling or numbness ? Unrelenting pain ? Fever (over 101?- it is normal to have a low grade fever for the first day or two following surgery) or chills ? Redness around the incisions ? Color changes ? Continuous bleeding or drainage from the incision (a small amount is expected) ? Excessive nausea or vomiting ? Difficulty breathing If you have an emergency that requires immediate attention such as shortness of breath or chest pain, call 911 or proceed to the nearest emergency room. [facility]: [phone] Pain Medications: It is the policy of [facility] that narcotic medications will only be refilled during office hours. Additionally, due to the alarming rate of narcotic pain medication abuse/dependence, it has become necessary for physician practices to closely manage patient use of prescription narcotic pain relievers, such as Vicodin ([place]), Percocet, and Oxycodone products. Narcotic pain management in the postoperative period may not exceed 6 weeks. If narcotic pain management is required beyond 90 days, then a referral to a Chronic Pain Specialist will be made. If a request for a medication prescription of refill has been made, the physician must review your chart prior to authorizing the request. Please be patient with office staff. If you call during patient hours, your call may not be returned until the end of the day. Skin/Wound/Dressing Care Report to your healthcare provider any signs of infection, such as:: chills, fever, night sweats, increased pain, unusual drainage and unusual redness Dressing: Keep dressing intact, clean and dry until 2 week post-op appointment. No soaking the incision site in pools or tubs. No topical ointments or creams to the incision site. Visit Report/Discharge Packet Instructions: DI for Knee Replacement, DI for Prescription Opioid Use Stand Alone Forms: Patient Portal/API Discharge Data Primary Care Provider: Suzie Richards Attending Provider: Deloris Morales
--- NOTE | 2024-01-21 05:14 | PC.NURSE ---
Late Entry:on 01/06/24 @ [id number] this patient was medicated with Oxycodone 5 mg per patient request for pain greater than 4/40 but I failed to scan the medication.
== END 2024-01-07 13:10 | disposition home or self-care (01) ==
LOC: OR 06:12 → AC 06:13
PROVIDERS: PCP Nurse Practitioner; Referring Provider Orthopaedic Surgery Foot and Ankle Surgery; Visit Provider Orthopaedic Surgery Foot and Ankle Surgery
PROC: 0SRD0JZ Replacement of Left Knee Joint with Synthetic Substitute, Open Approach (ICD-10-PCS; CPT 27447; principal; 2024-01-06 07:45)
DX: M17.12 Unilateral primary osteoarthritis, left knee (principal); G89.18 Other acute postprocedural pain; M25.762 Osteophyte, left knee
CPT/HCPCS: 27447; 36415; 64450; 73560; 85014; 85018; 97116; 97162; 97165; 97530; 97535; C1776; C9290; J0171; J0690; J1170; J2250; J2405; J2704; J3010